=== PATIENT | female | born 1985 | race Caucasian/White ===

== ENCOUNTER 2023-12-23 09:10 | Outpatient (CLI) | payer OTHER, SELFPAY ==
--- NOTE | ~2023-12-23 | US_ITS ---
EXAMINATION: US thyroid DATE: 12/23/2023 09:25 INDICATION: Hyperthyroidism TECHNIQUE: Multiple ultrasound images of the thyroid were obtained. COMPARISON: None. FINDINGS: The right thyroid lobe measures 3.9 x 1.3 x 1.8 cm. The left thyroid lobe measures 3.2 x 0.7 x 1.1 c m. Thyroid isthmus measures 3 to 4 mm in maximal thickness. No discrete nodules identified. There is normal echotexture, echogenicity throughout the thyroid gland. There is increased vascular flow throu ghout both the left and right thyroid lobes on color Doppler. IMPRESSION: 1. Increased vascular flow throughout the otherwise normal-appearing thyroid which can be seen with t hyroiditis. Reviewed, dictated and finalized at location A. IMPRESSION: 1. Increased vascular flow throughout the otherwise normal-appearing thyroid wh ich can be seen with thyroiditis.
== END 2023-12-23 09:11 ==
LOC: GOSHIMG 09:12
DX: E03.9 Hypothyroidism, unspecified (principal)
CPT/HCPCS: 76536

== ENCOUNTER 2024-03-02 08:55 | Outpatient (CLI) | payer OTHER, SELFPAY ==
--- NOTE | ~2024-03-02 | MR_ITS ---
MRI of the right knee Clinical history: Pain Technique: Coronal proton density and proton density-weighted images, sagittal proton-density and T2 fat-sat images, and axial proton-density fat-saturated images were acquired. Findings: Anterior and posterior cruciate ligaments are intact. Medial collateral ligament and the la teral collateral ligament complex are intact. Popliteus tendon is intact. Medial and lateral menisci are intact, without evidence of tear. There is mild to moderate chondromalacia the patellar apex and along the femoral trochlea. Extensor mechanism is intact. Minimal joint effusion and minimal Marie's cyst present. Impression: Chondromalacia of the patellofemoral compartment, as detailed above. Minimal joint effusion and minimal Marie's cyst. Reviewed, dictated and finalized at location M. UTER NUMERICAL CONTROL GRINDER Impression: Chondromalacia of the patellofemoral compartment, as detailed above. Minimal joint effusion and minimal Marie's cyst.
== END 2024-03-02 08:56 | disposition home or self-care (01) ==
LOC: GOSHIMG 08:57
DX: M22.41 Chondromalacia patellae, right knee (principal)
CPT/HCPCS: 73721

== ENCOUNTER 2024-03-13 08:59 | Emergency (ER) | payer OTHER, SELFPAY ==
--- NOTE | 2024-03-13 09:27 | ED_ITS ---
HPI - URI/Sore Throat General Chief Complaint: Upper Respiratory Infection Stated Complaint: sorethroat Time Seen by Provider: 03/13/24 09:27 Source: patient, RN notes reviewed and old records reviewed Mode of arrival: ambulatory Limitations: no limitations History of Present Illness HPI Narrative: 38-year-old female to Express Care with complaint of sore throat for 2 days. Patient denies cough, ear pain, fever, difficulty swallowing. Patient able to tolerate fluids by mouth. Patient resting comfortably in exam room in no acute distress. Related Data Home Medications Medication Instructions Recorded Confirmed cyanocobalamin (vitamin B-12) mcg 03/13/24 1,000 mcg/mL injection solution liothyronine 5 mcg tablet mcg 03/13/24 Allergies Allergy/AdvReac Type Severity Reaction Status Date / Time Sulfa (Sulfonamide Allergy Mild Unknown Verified 03/13/24 09:43 Antibiotics) Review of Systems Review of Systems: All systems reviewed & are unremarkable except as noted in HPI and below Constitutional: Constitutional: Reports no additional constitutional complaints Eyes: Eyes: Reports no additional eye complaints ENT: Reports as per HPI and Reports sore throat Cardiovascular: Cardiovascular: Reports no additional cardiovascular complaints, Denies chest pain and Denies dyspnea Respiratory: Respiratory: Reports no additional respiratory complaints, Denies cough and Denies dyspnea Musculoskeletal: Musculoskeletal: Reports no additional musculoskeletal complaints Neurologic: Reports system reviewed and no additional complaints, except as documented Psychiatric: Psychiatric: Reports no additional psychiatric complaints PMFSH Comments At the time of my signature, I reviewed and agree with the nursing past medical, surgical, social, and family history. There is no relevant family history pertinent to the patient complaint. Exam Const: General: cooperative, healthy appearing, comfortable, no acute distress, alert and well nourished Nutritional Appearance: well nourished Orientation/consciousness: patient oriented x3 Limitations: no limitations HENMT: Head: normal to inspection Ears: external ears normal Face/Nose/Sinus: Normal external nose present, Normal nares present, normal facial exam, No erythema and No edema Face and sinus: normal facial exam, no erythema and no edema Mouth: Yes Normal oral and palatal mucosa present Eyes: General: appearance normal, both eyes and all related structures Neck: Neck: normal visual inspection, full ROM and no meningeal signs Lymphatic: no lymphadenopathy noted and no lymphedema noted Chest: Chest palpation & inspection: normal inspection of the chest Resp: Effort & Inspection: normal respiratory effort and able to speak in complete sentences Auscultation: clear to auscultation bilaterally Cardio: Jugular venous distension: no JVD Rate: regular rate Rhythm: regular rhythm Back/Spine/Pelvis: Cervical Spine: cervical ROM normal Skin: General skin exam: normal color, no rashes or lesions noted and turgor normal Neuro: General: patient oriented x3, gait normal, moves all extremities and no meningeal signs Speech: normal speech Gait exam (Neuro): Normal gait present Extrem: General: normal to inspection, full ROM and capillary refill normal Psych: Appearance: grossly normal and well kempt Course Course Emergency Course: Some parts of this dictation were generated by voice recognition software and may contain typographical and/or grammatical inaccuracies. Level of Care: Express Care Visit Vital Signs Vital signs: Vital Signs Temperature 37.1 C 03/13/24 09:36 Pulse Rate 67 03/13/24 09:36 Respiratory Rate 16 03/13/24 09:36 Blood Pressure 112/74 03/13/24 09:36 Pulse Oximetry 98 03/13/24 09:36 Temperature 37.1 C 03/13/24 09:36 Pulse Rate 67 03/13/24 09:36 Respiratory Rate 16 03/13/24 09:36 Blood Pressure 112/74 03/13/24 09:36 Pulse Oximetry 98 03/13/24 09:36 reviewed MDM - URI/Sore Throat MDM Narrative Medical decision making narrative: 38-year-old female to Express Care with complaint of sore throat for 2 days. Patient denies cough, ear pain, fever, difficulty swallowing. Patient able to tolerate fluids by mouth. Patient resting comfortably in exam room in no acute distress. On exam, posterior oropharynx erythematous. Anterior cervical lymphadenopathy present. Patient tested positive for strep in clinic. Patient is sitting comfortably in exam room nontoxic in appearance. Patient appropriate for outpatient treatment and follow-up. Discharge instructions reviewed with patient, as well as provided in writing per nursing staff. The instructions also include specific and strict return/GO TO THE ER as well as f/u information. All questions have been answered, and the patient deny any further questions with discharge and discharge plan. Some parts of this dictation were generated by voice recognition software and may contain typographical and/or grammatical inaccuracies. Differential Diagnosis Differential diagnosis: Likely upper respiratory infection, croup, otitis media, sinusitis, viral infection, bronchitis, influenza and pharyngitis Discharge Plan Discharge Clinical Impression: Strep throat Patient Disposition: Home, Self-Care Condition: Stable Instructions: Strep Throat (DC) Additional Instructions: -Alternate Tylenol and Motrin per package directions for fever or pain. -Eat and drink things that are easy to swallow, like tea or soup, or popsicles. -Oral rinses such as: Salt water gargles and/or may use topical anesthetic (eg. Chloraseptic spray) or lozenges to relieve dryness or throat pain). -Frequent hand washing or hand facing baster jumpbasting is one of the best ways to prevent spread of infection. -Using a vaporizer or humidifier at night will also help thin secretions and help with coughing up phlegm. -Follow up with primary care provider in 2-3 days if condition is not improving; or seek ER visit if you have trouble breathing, cannot drink enough fluids, have muffled voice, difficulty opening your mouth, or severe swelling. Prescriptions: New amoxicillin 875 mg tablet 875 mg PO Q12H Qty: 20 0RF No Action liothyronine 5 mcg tablet cyanocobalamin (vitamin B-12) 1,000 mcg/mL solution Follow-up/Referrals: Mariusz,Ricardo Rodriguez [Other]
[2024-03-13 09:36] VITALS: BP 112/74; PULSE 67; RESP 16; TEMP 37.1; O2SAT 98
[2024-03-15 10:03] LABS: EDSTREPNEGPOS1 Positive (Negative)
== END 2024-03-13 09:56 | disposition home or self-care (01) ==
PROVIDERS: Emergency Provider Nurse Practitioner Family
DX: J02.0 Streptococcal pharyngitis (principal); E03.9 Hypothyroidism, unspecified; E53.8 Deficiency of other specified B group vitamins
CPT/HCPCS: 87880; 99213; G0463

== ENCOUNTER 2024-06-01 08:17 | Emergency (ER) | payer OTHER, SELFPAY ==
--- NOTE | 2024-06-01 08:23 | ED_ITS ---
HPI - URI/Sore Throat General Chief Complaint: Upper Respiratory Infection Stated Complaint: Headaches Time Seen by Provider: 06/01/24 08:24 Source: patient Mode of arrival: ambulatory Limitations: no limitations History of Present Illness HPI Narrative: Jillian is a 38-year-old female patient presenting to the clinic today with complaints of headache x1 day. She reports her children have been sick with flu-like illness. Does have some nasal congestion but denies any other symptoms. MD elicited complaint: nasal congestion and other (Headache) Related Data Home Medications ?Medication ?Instructions ?Recorded ?Confirmed ?Last Taken ?Type cyanocobalamin (vitamin B-12) 1,000 mcg subcut WEEKLY 03/13/24 03/13/24 Unknown History 1,000 mcg/mL injection solution liothyronine 5 mcg tablet 5 mcg PO DAILY 03/13/24 03/13/24 Unknown History Allergies Allergy/AdvReac Type Severity Reaction Status Date / Time Sulfa (Sulfonamide Allergy Mild Unknown Verified 06/01/24 08:25 Antibiotics) Review of Systems Review of Systems: Pertinent positives per HPI. Patient denies any fever, chills, rash, visual changes, dizziness, cough, shortness of breath, chest pain, palpitations, nausea, vomiting, diarrhea, constipation, abdominal pain, or any urinary issues. PMFSH Comments At the time of my signature, I reviewed and agree with the nursing past medical, surgical, social, and family history. There is no relevant family history pertinent to the patient complaint. Exam Narrative: General: Well-developed, well nourished, in no apparent distress Head: Normocephalic, atraumatic Eyes: Pupils equally round and reactive to light bilaterally, EOM intact, sclera and conjunctive clear, no discharge, lids normal Ears: TMs intact and clear, ear canals clear, no drainage, grossly hearing normal. Nose: Nares patent, clear nasal discharge, no inflammation, no sinus tenderness. Mouth: Oral pharynx without lesions or masses, good dentition, MMM. Neck: Supple, trachea midline, no enlargement of anterior or posterior cervical nodes, no thyroid masses or goiter palpable. Cardio: Regular rate and rhythm, s1 and s2 normal, no murmur appreciated. Resp: Clear to auscultation bilaterally, no rhonchi, rales, wheezing or rubs Course Course Emergency Course: Portions of this record may have been created with voice recognition software. Level of Care: Express Care Visit Vital Signs Vital signs: Vital signs reviewed MDM - URI/Sore Throat MDM Narrative Medical decision making narrative: At the time of visit patient is resting comfortably on the exam table. Patient appears to be nontoxic. Labs: Influenza testing was negative in the clinic today. Plan: I suspect patient has acute headache likely due to viral syndrome as daughter tested positive for influenza A in the clinic today. Supportive measures were discussed with the patient and they voiced understanding discharge instructions and agrees to treatment plan. Return precautions reviewed Differential Diagnosis Differential diagnosis: Likely upper respiratory infection, otitis media, sinusitis, viral infection, bronchitis, influenza, pharyngitis and other Discharge Plan Discharge Clinical Impression: Exposure to influenza Headache Qualifiers: Headache type: unspecified Headache chronicity pattern: acute headache Intra ctability: not intractable Qualified Code(s): R51.9 - Headache, unspecified Patient Disposition: Home, Self-Care Condition: Stable Instructions: Antibiotic Form, Acute Headache (ED) Additional Instructions: Influenza testing was negative in the clinic today Increase fluids and stay well hydrated Tylenol/motrin for pain/fever Flonase and OTC antihistamines as directed Vicks vapor rub to open sinuses Sinus rinses for congestion Cepacol spray, cough drops, throat lozenges, warm tea with honey/lemon, gargle salt water to soothe throat BRAT diet for diarrhea Clear liquids x 24 hours then advance as tolerated for nausea/vomiting Go to the ED if you develop a worsening in your condition- high fever not controlled by Tylenol or Motrin, dehydration, weakness, lethargy, shortness of breath, or chest pain. Follow up with your PCP in 3-5 days if symptoms persist. Patient Language: Montenegrin Prescriptions: No Action liothyronine 5 mcg tablet 5 mcg PO DAILY cyanocobalamin (vitamin B-12) 1,000 mcg/mL solution 1,000 mcg subcut WEEKLY Follow-up/Referrals: PHYSICIAN,SHOE SHINER [Primary Care Provider] - Stand Alone Forms: Work/School Release IP Time of Disposition: 08:49 Quality NIHSS Nursing Documentation ED NIHSS nursing documentation: reviewed/agree
[2024-06-01 08:44] VITALS: BP 126/76; PULSE 68; RESP 16; TEMP 37.1; O2SAT 98
[2024-06-01 08:57] LABS: EDINFLUASCREEN Negative (Negative); EDINFLUBSCREEN Negative (Negative)
== END 2024-06-01 08:55 | disposition home or self-care (01) ==
PROVIDERS: Emergency Provider Nurse Practitioner Family
DX: R51.9 Headache, unspecified (principal); R09.81 Nasal congestion
CPT/HCPCS: 87804; 99212; G0463

== ENCOUNTER 2024-07-26 10:01 | Emergency (ER) | payer OTHER, SELFPAY ==
[2024-07-26 10:02] VITALS: BP 153/78; PULSE 70; RESP 16; TEMP 36.6; O2SAT 100
--- OUTSIDE RECORDS SUMMARY | 2024-07-26 11:08 | XMS_ITS ---
Author Organization [email or web address] [facility] Address [address] [place] [address] Care Team Providers Care Implementation Manager Name Role Phone Lisa Scott Primary Care Provider [phone] Alisha Nichols [phone] REASON FOR VISIT F/u Thyroid/DST Encounters Encounter Location Date Provider Diagnosis [facility] [address] [place] [address] 03/02/2024 Alisha Nichols Plan Of Treatment No Information Progress Notes * Jillian RODRIGUEZDOB: [birth year] (39 yo F)Acc No.[id number]:03/02/2024 Progress Notes Patient: Jillian LYNN Provider: ROSA Hilario :1985 A ge:38 Y S ex:Female Date:03/02/2024 Address:[address] [place] [address] Pcp:Lisa Scott Subjective: * Chief Complaints: * 1 . F/u Thyroid/DST. * Medical History: Objective: * Vitals: Assessment: Plan: * Treatment: * Billing Information: * Visit Code: * Procedure Codes: * Electronic signature of ROSA Ghotra on 07/26/2024 at 11:08 AM CDT Sign off status: Pending * Provider: ROSA Hilario Date: 05/02/2023 Generated for Printi ng/Faxing/eTransmitting on: 0 07/26/2024 11:08 AM CDT
--- OUTSIDE RECORDS SUMMARY | 2024-07-26 11:08 | XMS_ITS | Clinical Summary ---
Author Organization [facility] Address [address] [place] [address] Phone Care Team Providers Care Plastic Fixture Builder Name Role Phone Ricardo Vee MD Primary Care Provider Allergies Active Allergy Reactions Criticality Noted Date Comments Sulfa Antibiotics Unknown 11/25/2017 Medications No known medications Active Problems No known active problems Social History Tobacco Use Types Packs/Day Years Used Date Smoking Tobacco: Some Days Smokeless Tobacco: Never Alcohol Use Standard Drinks/Week Comments No 0 (1 standard drink = 0.6 oz pur e alcohol) Comments No Sex and Gender Information Value Date Recorded Sex Assigned at Not on file Legal Sex Female 12:21 PM CDT Gender Identity Not on file Sexual Orientation Not on file Last Filed Vital Signs Vital Sign Reading Time Taken Comments Blood Pressure 98/60 05/11/2020 9:59 AM MINE MANAGER Pulse 69 05/11/2020 9:59 AM MINE MANAGER Temperature 36.9 C (98.5 F) 05/11/2020 9:59 AM MINE MANAGER Respiratory Rate 16 05/11/2020 9:59 AM MINE MANAGER Oxygen Saturation 98% 05/11/2020 9:59 AM MINE MANAGER Inhaled Oxygen Concentration - - Weight 82.6 kg (182 lb) 05/11/2020 9:59 AM MINE MANAGER Height 180.3 cm (5' 11 ) 11/25/2017 12:22 PM CDT Body Mass Index 25.38 11/25/2017 12:22 PM CDT Plan of Treatment Health Maintenance Due Date Last Done Comments Hepatitis C Virus (HCV) Screening 1985 TdaP Immunization 1985 Hepatitis B Immunization (1 of 3 - 19+ 3-dose series) 06/27/2003 Influenza Immunization (#1) 2023 10/0 10/2019, 03/06/2012 SARS-COV-2 Immunization ( season) 2023 05/04/2021, 07/18/2020, 06/29/2020 Respiratory Syncytial Virus (RSV) Immunization (Adult) (1 - 1-dose 75+ series) 06/27/2059 Meningococcal Immunization (ACWY) Aged Out No longer eligible b ased on patient's age to complete this topic Pneumococcal Immunization Combined Aged Out No longer eligible b ased on patient's age to complete this topic Rotavirus Immunization Aged Out No lo nger eligible based on patient's age to complete this topic Insurance Care Teams Plastic Fixture Builder Relationship Specialty [place] [id number] [place] [address] PCP - General Internal Medicine 11/25/17
--- OUTSIDE RECORDS SUMMARY | 2024-07-26 11:08 | XMS_ITS | Clinical Summary ---
Author Organization [facility] Address [address] [place] [address] Care Team Providers Care Surfacing Machine Operator Name Role Phone Denilson Brown MD Unavailable [phone] Ricardo Vee MD Primary Care Provider Source Comments [facility],non-owned Affiliates and Associated Physician Practices is amultiple site organization consisting of ambulatory clinics and hospital sitesin [place], [place], [place] and [place]. This disclosure is being madepursuant to the Care Everywhere program and may not contain all information available regarding this patient. Last updated 18.[facility] Allergies Active Allergy Reactions Criticality Noted Date Comments Sulfa Drugs Urticaria,Rash 10/21/2008 Medications * Be aware that medications may not be up to date on this document. Alwaysverify current medications with the patient. Medication Sig Dispensed Refills Start Date End Date Status Cetirizine HCl (ZYRTEC PO) Active Multiple Vitamin (MULTI VITAMIN DAILY PO) Active levothyroxine (Synthroid) 88 MCG tabletIndicatio ns:Hypothyroidi sm, acquired,Goiter TAKE 1 (ONE) TABLET BY MOUTH ONCE DAILY REPLACING THE 75 MCG DOSING 90 tablet 1 05/19/2023 Active cyanocobalamin (Vitamin B-12) injection INJECT SUBCUTANEOUSLY ONCE WEEKLY 03/15/2024 Active liothyronine (Cytomel) 5 MCG tablet 1 tab(s) orally once a day at noon for 30 days 02/13/2024 Active diclofenac sodium EC (Voltaren) 75 MG tablet 1 tab(s) orally 2 times a day Active acetaminophen CR (Tylenol Arthritis Pain) 650 MG tablet Take by mouth every 8 hours 06/09/2023 Active Magnesium Glycinate 100 MG CAPS Magnesium Glycinate Activ e cephalexin (Keflex) 500 MG capsule Take 1 (one) capsule by mouth 3 times daily 21 capsule 11/29/2022 Discontinue d(List Clean-Up) Active Problems Problem Noted Date Diagnosed Date Dysmenorrhea 06/29/2018 Menorrhagia with regular cycle 06/29/2018 Encounter for supervision of other normal pregna ncy 11/28/2014 Overview (03/05/2015): Screening for cervical cancer 10/21/2008 Overview (10/11/2010): 09/11/2009 wnl Resolved Problems Problem Noted Date Diagnosed Date Resolved Date Supervision of normal first 10/09/2011 11/28/2014 Encounters Date Type Department Care Team Description 07/08/2024 1:00 PM CDT Office Visit [facility] [place] [address] [facility] [address] [place] [address] Denilson Brown MD Well woman exam with routine gynecological exam (Primary Dx); Special screening examination for human papillomavirus (HPV); Antwan 07/08/2024 11:54 AM CDT - 07/08/2024 11:59 PM CDT Hospital Encounter [facility] [address] [facility] [address] [place] [address] Discharge Disposition: Home or Self Care 07/08/2024 Travel 05/31/2024 8:00 AM CARD FOLDER Office Visit [facility] [address] [place] [id number] Ishaan Barillas MD Patellofemoral chondrosis of right knee (Primary Dx) from Last 3 Months Immunizations Name Administration Dates Next Due FLU VACCINE TRI IIV3 SPLIT PF IM (FLUVIRIN) 12/28,04/05/2011 MMR 11/03/2011 TDAP (7yrs+) 10/21/2014,01/06/2013,11/03/2011 Family History Medical History Relation Name Comments Arthritis - Rheumatoid Father Hyperlipidemia Father Hypertension Father Thyroid Disease Maternal Aunt 1 Thyroid Disease Maternal Aunt 2 Thyroid Disease Maternal Aunt 3 Diabetes Maternal Grandfather Heart Disease Maternal Grandfather Hypertension Maternal Grandfather Stroke Maternal Grandfather Diabetes Maternal Grandmother Heart Disease Maternal Grandmother Hypertension Maternal Grandmother Diabetes - Type 2 Mother Obesity Mother Thyroid Disease Mother Cancer Paternal Aunt Family Hx Skin, Colon, a nd Breast Cancer Paternal Grandfather Pancrea tic Diabetes Paternal Grandfather Heart Disease Paternal Grandfather Hypertension Paternal Grandfather Diabetes Paternal Grandmother Heart Disease Paternal Grandmother Hypertension Paternal Grandmother Diabetes - Type 2 Paternal Uncle Relation Name Status Comments Father Maternal Aunt 1 Alive Maternal Aunt 2 Alive Maternal Aunt 3 Alive Maternal Grandfather Maternal Grandmother Mother Paternal Aunt Family Hx Other Paternal Grandfather Paternal Grandmother Paternal Uncle Alive Social History Tobacco Use Types Packs/Day Years Used Date Smoking Tobacco: Former Cigarettes 0.3 2 0 12/13/2008 - 12/13/2010 Smokeless Tobacco: Never Tobacco Cessation:Counseling Given: Not Answered Comments:8-10 daily Alcohol Use Standard Drinks/Week Comments Yes 0 (1 standard drink = 0.6 oz pur e alcohol) weekend / social PHQ-2 Answer Date Recorded Patient Health Questionnaire-2 Score 0 07/08/2024 Sex and Gender Information Value Date Recorded Sex Assigned at Female 05/12/2021 6:13 PM CARD FOLDER Gender Identity Female 05/12/2021 6:13 PM CARD FOLDER Sexual Orientation Straight 05/12/2021 6: 13 PM CARD FOLDER Last Filed Vital Signs Vital Sign Reading Time Taken Comments Blood Pressure 124/76 07/08/2024 1:00 PM CDT Pulse 60 06/29/2018 8:05 AM CARD FOLDER Temperature 36.2 C (97.2 F) 06/29/2018 7:42 AM CARD FOLDER Respiratory Rate 16 06/29/2018 8:05 AM CARD FOLDER Oxygen Saturation 98% 06/29/2018 8:05 AM CARD FOLDER Inhaled Oxygen Concentration - - Weight 94.3 kg (208 lb) 07/08/2024 1:00 PM CDT Height 177.8 cm (5' 10 ) 07/08/2024 1:00 PM CDT Body Mass Index 29.84 07/08/2024 1:00 PM CDT Plan of Treatment Health Maintenance Due Date Last Done Comments HEPATITIS C SCREENING 06/22/2002 HEPATITIS B VACCINE (1 of 3 - 19+ 3-dose series) 06/27/2003 COVID-19 VACCINE (4 - season) 2023 05/04/2021, 07/18/2020, 06/29/2020 INFLUENZA VACCINE (#1) 2023 , 02/06/2020, 02/02/2020, Additional history exists DTAP/TDAP/TD VACCINES (4 - Td or Tdap) 10/21/2024 10/21/2014, 01/06/2013, 11/03/2011 SCREENING FOR DIABETES 11/14/2025 11/14/2022 MAMMOGRAM 07/08/2026 07/08/2024 LIPID TESTING 06/09/2028 06/09/2023, 10/27, 02/02/2020 PAP with HPV 07/08/2029 07/08/2024, 02/26, 08/07/2017 ZOSTER VACCINE (1 of 2) 2034 HIV SCREENING Completed 05/26/2014, 11/2012, 03/08/2011 DEPRESSION SCREENING Completed 05/31/2024, 06/06/19 24 HIB VACCINE Aged Out No longer eligi ble based on patient's age to complete this topic HPV VACCINE Aged Out No longer eligi ble based on patient's age to complete this topic MENINGOCOCCAL (Group B) VACCINE SHARED DECISION-MAKING Aged Out No longer eligible based on patient's age to complete this topic MENINGOCOCCAL GROUPS A/C/Y/W VACCINE Aged Out No longer eligible based on patient's age to complete this topic PNEUMOCOCCAL VACCINE Aged Out No long er eligible based on patient's age to complete this topic Procedures Procedure Name Priority Date/Time Associated Diagnosis Comments PAP IG LB +HPV APTIMA REFLEX 16,18/45 Routine 07/08/2024 3:04 PM CDT Well woman exam with routine gynecological exam Special screening examination for human papillomavirus (HPV) MAMMO BILAT SCREENING W ELMO Routine 07/08/2024 12:11 PM CDT Encounter for screening mammogram for malignant neoplasm of breast BASIC METABOLIC PANEL (CALCIUM TOTAL) Routine 11/14/2022 7:51 AM CDT Hypothyroidism, acquired Weight gain, abnormal LIPID PROFILE Routine 11/14/2022 7:51 AM CDT Hypothyroidism, acquired Familial hypercholesterolemia HIV-1 HIV-2 ANTIBODY W/ REFLX CONFIRM 05/26/2014 9:47 AM CARD FOLDER from Last 3 Months or Most Recently Relevant to Health Maintenance Results * PAP IG LB +HPV APTIMA REFLEX 16,18/45 (07/08/2024 3:04 PM CDT) Diagnosis Comment [facility] INSURANCE BILL Comment:NEGATIVE FOR INTRAEP ITHELIAL LESION OR MALIGNANCY. Specimen Adequacy Comment [facility] INSURANCE BILL Comment: Satisfactory for evaluation. Endocervical and/or squamous metaplastic cells (endocervical component) are present. Clinician Provided ICD10 Comment [facility] INSURANCE BILL Comment: Z01.419 Z11.51 Performed by Comment [facility] INSURANCE BILL Comment:Kinza portillo, Adjunct Communications Faculty Member (ASCP) Comment . [facility] INSURANCE BILL Note Comment [facility] INSURANCE BILL Comment: The Pap smear is a screening test designed to aid in the detection of premalignant and malignant conditions of the uterine cervix. It is not a diagnostic procedure and should not be used as the sole means of detecting cervical cancer. Both false-positive and false-negative reports do occur. [facility] CPT Code Automation Comment [facility] INSURANCE BILL Comment: This liquid based ThinPrep(R) pap test was screened with the use of an image guided system. Human papillomavirus Aptima Negative Negative [facility] INSURANCE BILL Comment: This nucleic acid amplification test detects fourteen high-risk HPV types (16,18,31,33,35,39,45,51,52,56,58,59,66,68) without differentiation. HPV Genotype Reflexed Comment [facility] INSURANCE BILL Comment:Criteria not met, HP V Genotype not performed. PART OF UTERINE CERVIX / Unknown 07/08/2024 3:04 PM CDT 07/08/2024 Narrative [facility] INSURANCE BILL - 07/12/2024 3:09 PM CDT Performed at: [address] [place], [place] [address] [id number] Logistics Supervisor: Myah Clement MD, Phone: [phone] Performed at: [address] [place], [place] [id number] Logistics Supervisor: Myah Clement MD, Phone: [phone] Specimen Comment: Source.............Cervix;Endocervix Specimen Comment: No. of containers..01 ThinPrep Vial Denilson Brown MD LAB - PATHOLOGY/CYT OLOGY ORDERABLES [facility] INSURANCE BILL [address] [place] [address] * Mammo Bilat Screening W [place] (07/08/2024 12:11 PM CDT) Anatomical Region Laterality Modality Breast Bilateral Mammography 07/13/2024 1:22 PM CDT Impressions 07/13/2024 1:25 PM CDT IMPRESSION: Annual screening mammography is recommended. OVERALL FINAL ASSESSMENT: BI-RADS Category 1: Negative. > Interpreting Provider: Renato Mary MD on 07/13/2024 1:25 PM Narrative 07/13/2024 1:25 PM CDT EXAMINATION: BILATERAL DIGITAL SCREENING MAMMOGRAM AND BILATERAL BREAST TOMOSYNTHESIS HISTORY: Screening. COMPARISON: Baseline TECHNIQUE: BILATERAL digital breast tomosynthesis (DBT) and synthetic 2D digital mammogram images were obtained (bilateral craniocaudal and mediolateral oblique projections) including computer aided detection (CAD.) BREAST PARENCHYMAL COMPOSITION:Category C: The breasts are heterogeneously dense which may obscure small masses. MAMMOGRAM FINDINGS: There is no suspicious finding in either breast. Denilson Brown MD MAMMO ORDERABLES * BASIC METABOLIC PANEL (CALCIUM TOTAL) (11/14/2022 7:51 AM CDT) Glucose 84 65 - 99 mg/dL [facility] Comment: Fasting reference interval BUN 13 7 - 25 mg/dL [facility] Creatinine 0.85 0.50 - 0.97 mg/dL [facility] eGFR by Cystatin C 90 > OR = 60 mL/min/1. 73m2 [facility] Comment: The eGFR is based on the CKD-EPI 2020 equation. To calculate the new eGFR from a previous Creatinine or Cystatin C result, go to https://www.kidney.org/professionals/ kdoqi/gfr%5Fcalculator BUN/Creatinine Ratio NOT APPLICABLE 6 - 22 (calc) [facility] Sodium 137 135 - 146 mmol/L [facility] Potassium 4.8 3.5 - 5.3 mmol/L [facility] Chloride 102 98 - 110 mmol/L [facility] CO2 27 20 - 32 mmol/L [facility] Calcium 9.3 8.6 - 10.2 mg/dL [facility] Comment: Test Performed at: [place] [address] DEVANG MERINO MD Blood BLOOD SPECIMEN / Unknown 11/14/2022 7:51 AM CDT 11/14/2022 7:55 AM CDT Samantha Gorman MD LAB - CHEMISTRY ORDERABLES [facility] [address] [place] [address] * (ABNORMAL) LIPID PROFILE (11/14/2022 7:51 AM CDT) Cholesterol 224(H) <200 mg/dL [facility] HDL Cholesterol 78 > OR = 50 mg/dL [facility] Triglycerides 69 <150 mg/dL [facility] LDL Calculated 130(H) mg/dL (calc) [facility] Comment: Reference range: <100 Desirable range <100 mg/dL for primary prevention; <70 mg/dL for patients with CHD or diabetic patients with > or = 2 CHD risk factors. LDL-C is now calculated using the Jose-Sandoval calculation, which is a validated novel method providing better accuracy than the Friedewald equation in the estimation of LDL-C. Jose LEWIS et al. MARIA GUADALUPE. 2013;310(19): 3526-7035 (http://education.[employer]/faq/FLA541) CHOL/HDLC RATIO 2.9 <5.0 (calc) [facility] Non HDL Cholesterol 146(H) <130 mg/dL (calc) [facility] Comment: For patients with diabetes plus 1 major ASCVD risk factor, treating to a non-HDL-C goal of <100 mg/dL (LDL-C of <70 mg/dL) is considered a therapeutic option. Test Performed at: [facility] [place] [address] DEVANG MERINO MD Blood BLOOD SPECIMEN / Unknown 11/14/2022 7:51 AM CDT 11/14/2022 7:55 AM CDT Samantha Gorman MD LAB - CHEMISTRY ORDERABLES Performing Organization Address [facility] Co de Phone Number [facility] [address] [place] [address] * HIV-1 HIV-2 ANTIBODY W/ REFLX CONFIRM (05/26/2014 9:47 AM CARD FOLDER) HIV-1/HIV-2 NON-REACT DAVINA NON-REACT DAVINA [facility] Comment: A Nonreactive HIV 1/2 antibody result does not exclude HIV infection since the time frame for seroconversion is variable. If acute HIV infection is suspected, HIV-1 RNA TMA Qualitative (01490) testing is recommended. PLEASE NOTE: This information has been disclosed to you from records whose confidentiality may be protected by state law. If your state requires such protection, then the state law prohibits you from making any further disclosure of the information without the specific written consent of the person to whom it pertains, or as otherwise permitted by law. A general authorization for the release of medical or other information is NOT sufficient for this purpose. Test Performed at: [facility] [address] [place] [address] VALENCIA CISNEROS DO,MPH 05/26/2014 9:47 AM CARD FOLDER 05/26/2014 9:48 AM CARD FOLDER Denilson Brown MD LAB - SEROLOGY OLU FINN Performing Organization Address [facility] Co de Phone Number [facility] [address] [place] [address] from Last 3 Months or Most Recently Relevant to Health Maintenance Advance Directives * Full Code (Latest Code Status on File) Date Activated Date Inactivated Comments 12/13/2014 6:17 AM 12/15/2014 2:55 PM * FULL RESUSCITATION Date Activated Date Inactivated Comments 03/09/2013 3:37 AM 03/09/2013 9:40 AM * FULL RESUSCITATION Date Activated Date Inactivated Comments 03/09/2013 3:09 AM 03/09/2013 3:37 AM * FULL RESUSCITATION Date Activated Date Inactivated Comments 02/27/2013 9:10 PM 02/27/2013 11:01 PM * FULL RESUSCITATION Date Activated Date Inactivated Comments 11/01/2011 7:39 AM 11/04/2011 1:17 AM Care Teams Surfacing Machine Operator Relationship Specialty Start [place] [address] [facility] [address] [place] [address] PCP - OBGYN 10/21/08 [place] [address] [phone] PCP - General Internal Medicine 05/11/14
--- OUTSIDE RECORDS SUMMARY | 2024-07-26 11:08 | XMS_ITS | Encounter Summary ---
Author Organization [facility] Address [address] [address] Care Team Providers Care Tugboat Dispatcher Name Role Phone Denilson Brown MD Unavailable [phone] Ricardo Vee MD Primary Care Provider Encounter Details Date Type Department Care Team (Late st Contact [facility]) Description 06/09/2023 Lab Requisition [facility] - DermPath Lab [address] [place] [place] [phone] [place] [address] [address] Social History Tobacco Use Types Packs/Day Years Used Date Smoking Tobacco: Former Cigarettes 0.3 2 0 12/13/2008 - 12/13/2010 Smokeless Tobacco: Never Comments:8-10 daily Alcohol Use Standard Drinks/Week Comments Yes 2 (1 standard drink = 0.6 oz pur e alcohol) per week PHQ-2 Answer Date Recorded Patient Health Questionnaire-2 Score 0 06/06/2023 Sex and Gender Information Value Date Recorded Sex Assigned at Female 05/12/2021 6:13 PM PAYABLE PROCESSOR Gender Identity Female 05/12/2021 6:13 PM PAYABLE PROCESSOR Sexual Orientation Straight 05/12/2021 6: 13 PM PAYABLE PROCESSOR documented as of this encounter Functional Status Functional Status Response Date of Assess ment Is person deaf or have serious hearing difficult y? No 12/13/2014 Is person blind or have serious difficulty seein g? No 12/13/2014 Does person have serious dif ficulty walking/climbing stairs? No 12/13/2014 Does person have difficulty dressing/bathing? No 12/13/2014 Does person have difficulty doing errands alone? No 12/13/2014 Cognitive Status Response Date of Assessm ent Does person have difficulty concentrating/remembering/making decisions? No 12/13/2014 documented as of this encounter Plan of Treatment Not on file documented as of this encounter Procedures Procedure Name Priority Date/Time Associated Diagnosis Comments DERMATOPATHOLOGY Routine 06/09/2023 3:33 AM PAYABLE PROCESSOR documented in this encounter Results * DERMATOPATHOLOGY (06/09/2023 3:33 AM PAYABLE PROCESSOR) Case Report Dermatopathology Report Case: [id number] Authorizing Provider: Adam Ritter MD Collected: 06/09/2023 03:33 AM Ordering Location: [facility] Derm[facility] Lab Received: 06/09/2023 02:43 PM Pathologist: Aliza Gorman MD Specimen: Skin, right dorsal forearm 4 4:50 PM [facility] DERMATOPATHOLOGY LABORATORY Final Diagnosis Specimen A. 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 The specimen consists of a punch biopsy measuring 4x4x4 mm. Jar 0. 4 4:50 PM [facility] DERMATOPATHOLOGY LABORATORY Microscopic Description Specimen A. SKIN, right dorsal forearm: There is psoriasiform hyperplasia of the epidermis with focal parakeratosis and spongiosis. There is a superficial, mainly lymphohistiocytic inflammatory infiltrate. Grocott's methenamine silver (GMS) stain fails to highlight fungal elements in the available sections. Additional deeper sections were obtained and reviewed. IL-36 demonstrates weak staining in the upper epidermis. COMMENT: The histological differential diagnosis includes an chronic eczematous dermatitis, favored given the IL-36 staining, psoriasiform keratosis or psoriasis. 4 4:50 PM PAYABLE PROCESSOR DERMATOPATHOLOGY LABORATORY Disclaimer An external and internal positive and negative controls are appropriate for the histochemical, immunohistochemical and immunofluorescence stain(s) in this case (if any), except where stated explicitly. The performance characteristics of the stain(s) cited in this report were developed and its performance characteristic determined by the Dermatopathology Laboratory at [facility], directed by Dr. Aniyah Lilly. These tests need not be, and therefore are not, approved by the [place] Food and Drug Administration. The tests are used for clinical purposes. Billing Codes Specimen Charges Stain Charges 29306 1 46524 96644 1 1 4 4:50 PM PAYABLE PROCESSOR DERMATOPATHOLOGY LABORATORY Embedded Images 4 4:50 PM PAYABLE PROCESSOR DERMATOPATHOLOGY LABORATORY Pathology/Cytolo gy TISSUE SPECIMEN FROM SKIN / Unknown 06/09/2023 3:33 AM PAYABLE PROCESSOR 06/09/2023 2:43 PM PAYABLE PROCESSOR Adam Ritter MD LAB - PATHOLOGY/CY TOLOGY ORDERABLES DERMATOPATHOLOGY LABORATORY [facility] - Department of Dermatology [address] [phone] documented in this encounter Visit Diagnoses Not on filedocumented in this encounter Care Teams Tugboat Dispatcher Relationship Specialty [place] [address] [facility] [address] [place] [address] PCP - OBGYN 10/21/08 [place] [address] [phone] PCP - General Internal Medicine 05/11/14 documented as of this encounter
--- OUTSIDE RECORDS SUMMARY | 2024-07-26 11:08 | XMS_ITS | Encounter Summary ---
Author Organization [facility] Address [address] [place] [address] Care Team Providers Care Electrical Supervisor Name Role Phone Denilson Brown MD Unavailable Mitchell Allen MD Primary Care Provider [phone] Ricardo Vee MD Primary Care Provider Encounter Details Date Type Department Care Team (Late st Contact Info) Description 08/07/2012 [facility] Outpatient Visit EXTERNAL [place] [address] [facility] [employer] [address] [place] [address] Social History Tobacco Use Types Packs/Day Years Used Date Smoking Tobacco: Passive Smo ke Exposure - Never Smoker Cigarettes Comments:Socially-Desires To Quit Alcohol Use Standard Drinks/Week Comments Yes 0 (1 standard drink = 0.6 oz pur e alcohol) Comments Yes Sex and Gender Information Value Date Recorded Sex Assigned at Female 05/12/2021 6:13 PM PLANT BUYER Gender Identity Female 05/12/2021 6:13 PM PLANT BUYER Sexual Orientation Straight 05/12/2021 6: 13 PM PLANT BUYER documented as of this encounter Plan of Treatment Not on file documented as of this encounter Visit Diagnoses Not on filedocumented in this encounter Care Teams Electrical Supervisor Relationship Specialty Start [place] [address] [facility] [address] [place] [address] PCP - OBGYN 10/21/08 Mitchell Allen MD [address] [place] [address] [address] [place] [address] PCP - General 10/29/11 05/10/14 [place] [address] [address] PCP - General Internal Medicine 05/11/14 documented as of this encounter
--- OUTSIDE RECORDS SUMMARY | 2024-07-26 11:08 | XMS_ITS ---
Author Organization [facility] Address [address] [place] [address] Care Team Providers Care Deposit Refund Clerk Name Role Phone Lisa Scott Primary Care Provider REASON FOR VISIT lab follow up text Encounters Encounter Location Date Provider Diagnosis [facility] - Lisa Scott [address] [place] [address] 03/09/2024 Lisa Scott Plan Of Treatment No Information Progress Notes * Jillian RODRIGUEZDOB: 5 (39 yo F)Acc No.[id number]:03/09/2024 Progress Notes Patient: Jillian LYNN Provider: Arleen Scott MD :1985 A ge:38 Y S ex:Female Date:03/09/2024 Address:[address] [place], [place] [id number] Subjective: * Chief Complaints: * 1 . Lab follow up text. * HPI: H ypothyroidism: 38 yo female calls in today to initiate telehealth visit to discuss progress and management of hypothyroidism. Verbal consent provided by patient to proceed with this visit. This visit was performed in office via provider and patient located in primary care office with real time audio with video. At last visit in Dec we increased synthroid to 88 mcg daily. We added B12 injections and sent for DST. * Medical History: Objective: * Vitals: * P ast Orders: L ab:LIPID PANEL (Order Date - 03/02/2024) (Collection Date & Time - 03/02/2024 08:09 AM) Value Reference Range TRIGLYCERIDES 72 <150 - mg/dL CHOLESTEROL, TOTAL 222 H <200 - mg/dL HDL CHOLESTEROL 67 > OR = 50 - mg/dL LDL-CHOLESTEROL 139 H - mg/dL (calc) CHOL/HDLC RATIO 3.3 <5.0 - (calc) NON-HDL CHOLESTEROL 155 H <130 - mg/dL (calc) L ab:CBC (INCLUDES DIFF/PLT) (Order Date - 03/02/2024) (Collection Date & Time - 03/02/2024 08:09 AM) Value Reference Range WHITE BLOOD CELL COUNT 4.9 3.8-10.8 - [place] nd/uL RED BLOOD CELL COUNT 4.96 3.80-5.10 - Million /uL HEMOGLOBIN 15.1 11.7-15.5 - g/dL HEMATOCRIT 47.2 H 35.0-45.0 - % MCV 95.2 80.0-100.0 - fL MCH 30.4 27.0-33.0 - pg MCHC 32.0 32.0-36.0 - g/dL RDW 12.2 11.0-15.0 - % PLATELET COUNT 191 140-400 - Thousand/u L NEUTROPHILS 64.6 - % ABSOLUTE NEUTROPHILS 3165 8635-2073 - cells/u L LYMPHOCYTES 26.5 - % ABSOLUTE LYMPHOCYTES 7179 524-1586 - cells/uL MONOCYTES 6.5 - % ABSOLUTE MONOCYTES 319 200-950 - cells/uL EOSINOPHILS 1.8 - % ABSOLUTE EOSINOPHILS 88 15-500 - cells/uL BASOPHILS 0.6 - % ABSOLUTE BASOPHILS 29 0-200 - cells/uL MPV 11.5 7.5-12.5 - fL L ab:IRON AND TOTAL IRON BINDING CAPACITY (Order Date - 03/02/2024) (Collection Date & Time - 03/02/2024 08:09 AM) Value Reference Range IRON, TOTAL 93 40-190 - mcg/dL IRON BINDING CAPACITY 352 250-450 - mcg/dL ( calc) % SATURATION 26 16-45 - % (calc) L ab:T3, FREE (Order Date - 03/02/2024) (Collection Date & Time - 03/02/2024 08:09 AM) Value Reference Range T3, FREE 3.5 2.3-4.2 - pg/mL L ab:FERRITIN (Order Date - 03/02/2024) (Collection Date & Time - 03/02/2024 08:09 AM) Value Reference Range FERRITIN 59 16-154 - ng/mL L ab:T4, FREE (Order Date - 03/02/2024) (Collection Date & Time - 03/02/2024 08:09 AM) Value Reference Range T4, FREE 1.4 0.8-1.8 - ng/dL L ab:TSH (Order Date - 03/02/2024) (Collection Date & Time - 03/02/2024 08:09 AM) Value Reference Range TSH 1.68 - mIU/L L ab:COMPREHENSIVE METABOLIC PANEL (Order Date - 03/02/2024) (Collection Date & Time - 03/02/2024 08:09 AM) Value Reference Range GLUCOSE 95 65-99 - mg/dL UREA NITROGEN (BUN) 11 7-25 - mg/dL CREATININE 0.79 0.50-0.97 - mg/dL BUN/CREATININE RATIO SEE NOTE: 10-17 - (calc) SODIUM 139 135-146 - mmol/L POTASSIUM 4.3 3.5-5.3 - mmol/L CHLORIDE 104 98-110 - mmol/L CARBON DIOXIDE 28 20-32 - mmol/L CALCIUM 9.1 8.6-10.2 - mg/dL PROTEIN, TOTAL 6.9 6.1-8.1 - g/dL ALBUMIN 4.4 3.6-5.1 - g/dL GLOBULIN 2.5 1.9-3.7 - g/dL (calc ) ALBUMIN/GLOBULIN RATIO 1.8 1.0-2.5 - (calc) BILIRUBIN, TOTAL 0.8 0.2-1.2 - mg/dL ALKALINE PHOSPHATASE 66 31-125 - U/L AST 21 10-30 - U/L ALT 16 6-29 - U/L EGFR 98 > OR = 60 - mL/min/1.73m2 L ab:VITAMIN B12/FOLATE, SERUM PANEL (Order Date - 03/02/2024) (Collection Date & Time - 03/02/2024 08:09 AM) Value Reference Range FOLATE, SERUM 21.4 - ng/mL VITAMIN B12 554 515-9086 - pg/mL L ab:DEXAMETHASONE (Order Date - 02/24/2024) (Collection Date & Time - 02/24/2024 08:41 AM) Value Reference Range DEXAMETHASONE 112 - ng/dL L ab:CORTISOL, TOTAL (Order Date 02/24/2024) (Collection Date & Time - 02/24/2024 08:41 AM) Value Reference Range CORTISOL, TOTAL 1.0 L - mcg/dL Assessment: Plan: * Treatment: * Billing Information: * Visit Code: * Procedure Codes: * Electronic signature of Alex Scott MD on 07/26/2024 at 11:08 AM CDT Sign off status: Pending * Provider: Arleen Scott MD Date: 1 05/09/2023 Generated for So velasquez/Fletcher/eTransmitting on: 0 07/26/2024 11:08 AM CDT History and Physical Notes * HPI (History of Present Illness) Category Sub-Category Detail Notes Category Not es Hypothyroidism 38 yo female calls in today to initiate telehealth visit to discuss progress and management of hypothyroidism. Verbal consent provided by patient to proceed with this visit. This visit was performed in office via provider and patient located in primary care office with real time audio with video. At last visit in Dec we increased synthroid to 88 mcg daily. We added B12 injections and sent for DST.
--- OUTSIDE RECORDS SUMMARY | 2024-07-26 11:08 | XMS_ITS | CONTINUITY OF CARE DOCUMENT ---
Author Name debchanellyandy Address Unknown Organization [facility] Address [address] [address] [place] [address] Phone [phone] Care Team Providers Care Boat And Plant Utility Supervisor Name Role Phone Andrez CAM, John Unavailable [phone] WILDER CAM, MARISA Unavailable [phone] WILDER CAM, MARISA Unavailable [phone] PROBLEMS Condition Status Date Provider Notes Venous hypertension - BLE inflammation active Anisa Beltrán RN Tobacco abuse active John Maguire MD ENCOUNTERS Date Type Provider Location Encounter Diag nosis - In-person encounter Office Visit [facility] - In-person encounter Office Visit John Maguire MD [facility] Tobacco abuse - In-person encounter Office Visit John Maguire MD [facility] Venous hypertension - BLE inflammation VITAL SIGNS Date Observation Value Provider Body Mass Index (Ratio) 26.92 kg/m2 Abilio Maguire MD blood pressure, diastolic 80 mm[Hg] Nikhil Pugh blood pressure, systolic 125 mm[Hg] Rho jose Pugh respiratory rate E&M 18 /min Zoila Pugh blood pressure, cuff size regular Rh farhat Pugh oxygen saturation, oximetry 99 % Zoila Pugh pulse rate 74 /min Zoila Pugh weight E&M 193 [lb_av] Zoila Pugh height E&M 71 [in_i] Zoila Pugh Body Mass Index (Ratio) 27.33 kg/m2 Ron Beltrán RN blood pressure, diastolic 60 mm[Hg] [facility], systolic 122 mm[Hg] Una forbes [facility] pulse rate 82 /min [facility] rate E&M 16 /min [facility] oxygen saturation, oximetry 99 % [facility] weight E&M 196 [lb_av] [facility] height E&M 71 [in_i] [facility] Body Mass Index (Ratio) 27.33 kg/m2 Ron Beltrán RN blood pressure, resting No Michi Brooks blood pressure, diastolic 80 mm[Hg] Juan Brooks blood pressure, systolic 116 mm[Hg] Roger Brooks oxygen saturation, oximetry 99 % Lyly Brooks respiratory rate E&M 16 /min Lyly Brooks pulse rate 67 /min Lyly Brooks blood pressure, cuff size regular Juan Boroks height E&M 71 [in_i] Lyly Brooks weight E&M 196 [lb_av] Lyly Brooks ALLERGIES Allergy Name Onset Date Reaction Criticality Status SULFA Low Criticality active HISTORY OF MEDICATION USE Medication Status Instructions Dates Provider Indications Com ments DAILY MULTIVITAMIN active take one tablet by mouth once daily Lyly Brooks SOCIAL HISTORY Date Observation Value Provider smoking status Current every day smoker Queta Pugh social history reviewed E&M revi ewed - no changes required Johnnicole Maguire MD smoking/tobacco cess ation, patient education and counseling yes Inez OCanelo number of years as a smoker 8 a [facility] smoking history, tot al pack/day 10 cig qd Inez Diamond cigarette use yes Inez Rupinder[facility]hetCanelo smoking status current every day smoker Arleen loja [facility] social history reviewed E&M kerline strange - no changes required Anisa Beltrán RN social history E&M Patient angelia hernadez smokes every day. Smoking History: P joe currently smokes every day. P atvictorino has been counseled to quit. 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 Has thrombosed veins which are tender in right lateral knee area and upper right calf. Mild edema and not bothersome. Uses compresssion stockings. I discussed the options with her which are either to stay with conservative rx or to have a phlebectomy. She wishes to wait and watch for now. Anisa Beltrán RN Cardiology:The Patie nt was reencouraged to stop smoking. John Maguire MD Cardiology:Has been increasing in pain lately, worse towards the end of the day. Also has varicosity left lateral calf, but this one doesn't bother her as much. She gets BLE edema, RLE>LLE. 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 Uses knee-high compression stockings for 2 months now, but finds leg cramps worsen with use. Leg swelling is better while stockings are on. V enous u/s showed b/l GSV reflux and right LSV reflux. V aricose vein located right posterior calf most painful. H as failed conservative measures and will recommend right LSV evlt to manage symptoms. W ill schedule scelorosis lateral knee varicosity at the same time. John Maguire MD Cardiology: evaluati on of varicose vein located right posterior calf. Has been increasing in pain lately, worse towards the end of the day. Also has varicosity left lateral calf, but this one doesn't bother her as much. She gets BLE edema. 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 Tried compression stockings aboout 6 months ago, but not recently. Finds them hot to wear. Didn't notice much improvement in her symptoms when wearing them. She denies history of DVT. check venous reflux study D iscussed conserverative measures - including ambulation, leg elevation, and thigh high 20-30mmHg compresion stockings Anisa Beltrán RN HISTORY OF PROCEDURES Procedure Date Procedure Name Provider Procedure Notes S tatus EKG John Maguire MD completed
--- OUTSIDE RECORDS SUMMARY | 2024-07-26 11:08 | XMS_ITS | Patient Health Record ---
Author Organization [facility] Address [address] [place] [address] Care Team Providers Care Imagery Intelligence Name Role Phone Mariusz CAM, Ricardo Primary Care Provider Zenon Murphy MD, Lionel Unavailable [phone] ALLERGIES Allergen (clinical drug ingredient) Drug/Non Drug Allergy documented on EMR Reaction Allergy Type Onset Date Status Sulfacetamide Sod-Sulfur Unknown Drug Allergy Active REASON FOR REFERRAL No Information MEDICATIONS Medication SIG (Take, Route, Fr equency, Duration) Notes Start Date End Date Status Aleve Active ZyrTEC Allergy Activ e Magnesium Active potassium Active IMMUNIZATIONS Vaccine Route Administration Date Status Comme nts Influenza Unknown 02/06/2020 Administered pneumoccocal Unknown 07/06/2020 Refused SOCIAL HISTORY Tobacco Use: Social History Observation Description Date Details (start date - stop date) Current Smoker NA - NA Sex Assigned At : Social History Observation Description Sex Assigned At Unknown Tobacco Use: Question Answer Notes Patient is a: current smoker How often do you smoke cigarettes? every day How many cigarettes a day do you smoke? 6-10 Are you interested in quitting? Thinking about q uitting Alcohol screening: Question Answer Notes Did you have a drink contain ing alcohol in the past year? Yes How often did you have a dri nk containing alcohol in the past year? Four or more times a week (4 points) How many drinks did you have on a typical day when you were drinking in the past year? 1 or 2 (0 points) How often did you have six o r more drinks on one occasion in the past year? 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) Active confirmed 814543187 Problem Pain in left foot (M79.672) Active confirmed 817616912785058 Problem Decreased sensation (R20.8) Active confirmed [id number] PLAN OF TREATMENT No Information Insurance Providers Payer Name Payer Address Payer Phone Subscriber Number Group Number Insured Name Patient Relationship to Insured Coverage Start Date Coverage End Date [employer] [address] [place] [address] [id number] Paulie Lovelace Spouse - patient is the spouse of the insured MEDICAL (GENERAL) HISTORY Medical History History ICD Code restless leg syndrome Surgical History Surgery Date(Month/Year)
--- OUTSIDE RECORDS SUMMARY | 2024-07-26 11:08 | XMS_ITS | Patient Health Record ---
Author Organization formerly [facility] Address [address] [address] Care Team Providers Care Licensed Loan Officer Name Role Phone Lisa Scott Primary Care Provider Alisha Nichols Unavailable [phone] Migration, Provider Unavailable Unavailable Allergies Allergen (clinical drug ingredient) Drug/Non Drug Allergy documented on EMR Reaction Allergy Type Onset Date Status Substance with sulfonamide structure and antibacterial mechanism of action (substance) Sulfa Antibiotics Unknown Drug Allergy Active Results Component Value Reference Range Notes COMPREHENSIVE METABOLIC PANE L Reviewed date:12/24/2023 02:10:09 PM Interpretation: Performing Lab:[facility], [facility] [address], [place], [address] Wallace Rousseau Notes/Report: FASTING:YES FASTING: YES VITAMIN D, 25-HYDROXY, LC/MS /MS Reviewed date:12/24/2023 02:10:09 PM Interpretation: Performing Lab:Anne [facility], [address] [place], [address] Wallace Rousseau MD Notes/Report: FASTING:YES FASTING: YES BARBARA IFA SCREEN W/REFL TO TIT ER AND PATTERN, IFA Reviewed date:12/30/2023 08:58:32 AM Interpretation: Performing Lab:Anne [facility], [address] [place], [address] Wallace Rousseau MD Notes/Report: FASTING:YES FASTING: YES T3, FREE Reviewed date:12/24/2023 02:10:09 PM Interpretation: Performing Lab:[facility], [address] [place], [address] Wallace Rousseau MD Notes/Report: FASTING:YES FASTING: YES RHEUMATOID FACTOR Reviewed date:12/30/2023 08:58:32 AM Interpretation: Performing Lab:[place], [facility], [address], [place], [address] Wallace Rousseau MD Notes/Report: FASTING:YES FASTING: YES HEMOGLOBIN A1c Reviewed date:12/24/2023 02:10:09 PM Interpretation: Performing Lab:[facility], [address] [place], [address] Wallace Rousseau Notes/Report: FASTING:YES FASTING: YES CBC (INCLUDES DIFF/PLT) Reviewed date:12/24/2023 02:10:09 PM Interpretation: Performing Lab:[facility], [address] [place], [address] Wallace Rousseau Notes/Report: FASTING:YES FASTING: YES VITAMIN B12/FOLATE, SERUM PA BONITA Reviewed date:12/24/2023 02:10:09 PM Interpretation: Performing Lab:[place] [facility], [address], [place], [address] Wallace Rousseau MD Notes/Report: FASTING:YES FASTING: YES T4, FREE Reviewed date:12/24/2023 02:10:09 PM Interpretation: Performing Lab:[facility], [address] [place], [address] Wallace Rousseau Notes/Report: FASTING:YES FASTING: YES TSH Reviewed date:12/24/2023 02:10:09 PM Interpretation: Performing Lab:[facility], [address] [place], [address] Wallace Rousseau Notes/Report: FASTING:YES FASTING: YES THYROID PEROXIDASE ANTIBODIE S Reviewed date:12/24/2023 02:44:01 PM Interpretation: Performing Lab:RICARD[place], [facility], [address] [facility], [place], [address] Otilio Wagner Notes/Report: FASTING:YES FASTING: YES THYROID PEROXIDASE ANTIBODIES 97 <9 IU/mL DEXAMETHASONE Reviewed date:03/11/2024 08:19:01 PM Interpretation: Performing Lab:[facility],, [address] [place], [address] Rani Morin MD,PhD,ROSITA Notes/Report: FASTING:YES FASTING: YES DEXAMETHASONE 112 Reference Ranges for Dexamethasone: Baseline: Less than 20 ng/dL 1 mg dexamethasone overnight: 180-550 ng/dL (8:00-10:00 AM) This test was developed and its analytical performance characteristics have been determined by [facility]. It has not been cleared or approved by FDA. This assay has been validated pursuant to the CLIA regulations and is used for clinical purposes. CORTISOL, TOTAL Reviewed date:03/01/2024 07:25:57 PM Interpretation: Performing Lab:[facility], [address], [place], [address] Wallace Rousseau MD Notes/Report: FASTING:YES FASTING: YES COMPREHENSIVE METABOLIC PANE L Reviewed date:03/04/2024 07:54:01 PM Interpretation: Performing Lab:[facility], [address] [place], [address] Wallace Rousseau Notes/Report: FASTING:YES FASTING: YES T3, FREE Reviewed date:03/04/2024 07:53:18 PM Interpretation: Performing Lab:[facility], [address], [place], [address] Wallace Rousseau MD Notes/Report: FASTING:YES FASTING: YES FERRITIN Reviewed date:03/04/2024 07:53:31 PM Interpretation: Performing Lab:[facility], [address], [place], [address] Wallace Rousseau MD Notes/Report: FASTING:YES FASTING: YES CBC (INCLUDES DIFF/PLT) Reviewed date:03/04/2024 07:57:27 PM Interpretation: Performing Lab:[facility], [address] [place], [address] Wallace Rousseau Notes/Report: FASTING:YES FASTING: YES VITAMIN B12/FOLATE, SERUM PA BONITA Reviewed date:03/04/2024 07:54:09 PM Interpretation: Performing Lab:[facility], [address] [place], [address] Wallace Rousseau MD Notes/Report: FASTING:YES FASTING: YES IRON AND TOTAL IRON BINDING CAPACITY Reviewed date:03/04/2024 07:54:16 PM Interpretation: Performing Lab:[facility], [address] [place], [address] Wallace Rousseau MD Notes/Report: FASTING:YES FASTING: YES LIPID PANEL Reviewed date:03/04/2024 07:54:23 PM Interpretation: Performing Lab:[facility], [address] [place], [address] DenishaOlivia Rousseau Notes/Report: FASTING:YES FASTING: YES T4, FREE Reviewed date:03/04/2024 07:53:24 PM Interpretation: Performing Lab[facility], [address] [place], [address] DenishaOlivia Rousseau Notes/Report: FASTING:YES FASTING: YES TSH Reviewed date:03/04/2024 07:53:11 PM Interpretation: Performing Lab:[facility], [address] [place], [address] DenishaRedwood Llccortney Rousseau Notes/Report: FASTING:YES FASTING: YES Reason For Referral No Information Medications Medication SIG (Take, Route, Frequency, Duration) Notes Start Date End Date Status Liothyronine Sodium 5 MCG TAKE 1 TABLET BY MOUTH EVERY DAY AT NOON for 90 Active Magnesium Glycinate 1000 MG *Ple ase review and pick correct strength-formulat ion from Glown[facility] options. If intended option is not shown, discontinue and re-order from Quick Search* Active Diclofenac Sodium 75 MG 1 tab(s) orally 2 times a day Active Levothyroxine Sodium 88 MCG 1 tab(s) orally once a day Active dexAMETHasone 1 MG 1 tab(s) orally once for 1 days 01/13/2024 Active Cyanocobalamin 1000 MCG/ML as directed intramuscularly once a week for 90 days 01/13/2024 Active Synthroid 88 MCG 1 tab(s) orally once a day for 90 days 01/13/2024 Active Social History Tobacco Use: Social History Observation Description Date Smoking Status WARNING: Information temporarily unavailable Smoking: Question Answer Notes Additional Findings: Tobacco User SOMETIMES OFF & ON Problems Problem Type SNOMED Code ICD Code Onset Dates Problem Status W/U Status Risk Notes Problem Hypothyroidism (97260988) Hypothyroidism, unspecified (E03.9) Active confirmed Problem Insomnia (222340307) Insomnia, unspecified (G47.00) Active confirmed Problem Autoimmune thyroiditis (90586112) Autoimmune thyroiditis (E06.3) Active confirmed Vital Signs Heart Rate 63 /min 12/19/2023 Blood pressure diastolic 77 mm Hg 12/19/2023 Height 70 in 12/19/2023 Blood pressure systolic 124 mm Hg 12/19/2023 Weight 203.2 lbs 12/19/2023 BMI 29.15 kg/m2 12/19/2023 Encounters Encounter Location Date Provider Diagnosis [address] [place] [address] 03/13/2024 Provider Migration Hypothyroidism, unspecified E03.9 ; Vitamin B12 deficiency anemia, unspecified D51.9 ; Autoimmune thyroiditis E06.3 and Abnormal weight gain R63.5 [facility] [place] [place] [address] 12/19/2023 Alisha Nichols Abnormal weight gain R63.5 ; Hypothyroidism, unspecified E03.9 ; Other fatigue R53.83 ; Body mass index [BMI] 29.0-29.9, adult Z68.29 and Insomnia, unspecified G47.00 SHELLY [facility] [address] [address] [place] [address] 01/13/2024 Alisha Nichols Autoimmune thyroiditis E06.3 ; Vitamin B12 deficiency anemia, unspecified D51.9 ; Insomnia, unspecified G47.00 ; Abnormal weight gain R63.5 and Impaired fasting glucose R73.01 [facility] [address] [place] [address] 02/13/2024 Lisa Scott [facility] [address] [place] [address] 02/13/2024 Lisa Scott Hypothyroidism, unspecified E03.9 Assessments Encounter Date Diagnosis (ICD Code) Assessment Notes Treatment Notes Treatment Clinical Notes Section Notes 03/13/2024 Hypothyroidism, unspecified (ICD-10 - E03.9) 03/13/2024 Vitamin B12 deficiency anemia, unspecified (ICD-10 - D51.9) 03/13/2024 Autoimmune thyroiditis (ICD-10 - E06.3) 12/19/2023 Hypothyroidism, unspecified (ICD-10 - E03.9) -Will send for thyroid US. -Pt symptoms consistent with Autoimmune Hypothyroidism, will screen with TPO antibodies. -- Continue current levothyroxine 88 mcg daily. - Check T4 and T3 levels along with TSH and TPO antibodies. - Consider adding liothyronine (T3) or switching to brand Synthroid or Tirosint based on lab results and absorption. -Thyroid Support supplement recommended - Purely Holistic, thyroid. - Thyroid ultrasound to evaluate for any abnormalities. Plan: Monitor thyroid function and adjust treatment as necessary. 12/19/2023 Abnormal weight gain (ICD-10 - R63.5) - Encourage a gluten-free diet to help with inflammatory markers, joint pain, and energy. - Autoimmune paleo diet guide provided. - Consider DST (cortisol test) in two months. Plan: Follow up on dietary changes and assess the impact on symptoms. 01/13/2024 Vitamin B12 deficiency anemia, unspecified (ICD-10 - D51.9) [facility] her [facility]- she can purchase needles and syringes from her [facility] for cheaper than it is dispenced with insurance. They made a note to her account with her B12 prescription. -Administer 1cc cyanocobalamin once weekly IM to help with fatigue. 01/13/2024 Autoimmune thyroiditis (ICD-10 - E06.3) -Will do trial of Brand Synthroid through [facility] to see if it helps patients fatigue. 02/13/2024 Hypothyroidism, unspecified (ICD-10 - E03.9) 12/19/2023 Other fatigue (ICD-10 - R53.83) -Will screen with BARBARA and RF considering her joint pain. 01/13/2024 Insomnia, unspecified (ICD-10 - G47.00) 03/13/2024 Abnormal weight gain (ICD-10 - R63.5) 12/19/2023 Body mass index [BMI] 29.0-29.9, adult (ICD-10 - Z68.29) 01/13/2024 Abnormal weight gain (ICD-10 - R63.5) 12/19/2023 Insomnia, unspecified (ICD-10 - G47.00) - Monitor sleep patterns and consider further evaluation for ADHD if symptoms persist. - Encourage healthy sleep hygiene and stress management techniques. Plan: Evaluate sleep issues and consider ADHD assessment if necessary. 01/13/2024 Impaired fasting glucose (ICD-10 - R73.01) 12/19/2023 Other Case discussed with GERMAIN Burciaga. Agree with plan. Lisa Scott MD 01/13/2024 Other The patient presented with concerns regarding weight gain, fatigue, sleep issues, anxiety, and headaches. She has a history of hypothyroidism and is currently on levothyroxine 88 mcg, increased from 75 mcg. Her last labs were done in May. She reports a decrease in caffeine intake but still experiences headaches and joint pain. The patient has tried cutting out gluten to address her fatigue and is considering adding liothyronine or switching to Synthroid or Tirosint based on lab results. She will be three months out from her cortisone shot in October at the beginning of Jan so we can re-evaluate her cortisol levels. The patient's free T4 level is 1.5, and her free T3 is 3.1. W Her B12 levels are suboptimal, and her A1C is 5.5, which is not in the prediabetes range but should be monitored given her elevated fasting BG. TPO antibodies were high, suggesting autoimmune hypothyroidism. She has not been screened for cholesterol with us but was found to have hyperlipidemia by her PCP. She endorses strong FH of high cholesterol and are on medication but she does not desire to be on a statin.. Her thyroid ultrasound showed increased vascular flow, consistent with thyroiditis, no nodules were found. BARBARA screen was negative, ruling out the need for rheumatology. [facility]: To complete at the end of Jan DST- TOTAL CORTISOL, DEXA CBC, CMP, TSH, FT3, FT4, B12, LIPID PANEL, IRON, FERRITIN, FOLATE Due to the nature of telephonic visits, the ability to do physical assessment was limited to what can be accomplished by patient directed telehealth visit based on instruction. Those limits are understood by the patient and myself. Impression is based on history, available information, and physical findings accomplished with telehealth visit. Chronic disease/problem list/ medication list reviewed and updated where indicated. Discussed diagnosis, plan including risks, benefits, and options of treatment. Advised to call for new, worsening, or persistent symptoms. Level of patient risk was of moderate complexity due to the documented nature of presentation, the information assessment required and the nature of the development of an evaluation and treatment plan as documented. PMH, FHx, SHx, Surgical Hx, Quality management review carried out and addressed as documented today as part of this visit. Medication list was reviewed and adjusted as indicated. Medication requiring a refill was addressed. Risk and benefits of any new medications were discussed and all questions were answered. Plan Of Treatment Pending Test Test Name Order Date Ultrasound thyroid 12/19/2023 Insurance Providers Payer Name Payer Address Payer Phone Subscriber Number Group Number Insured Name Patient Relationship to Insured Coverage Start Date Coverage End Date [employer] [address] [place] [address] [id number] Jillian Harrison Self - patient is the insured Medical (General) History Medical History History ICD Code Autoimmune thyroiditis E06.3
--- OUTSIDE RECORDS SUMMARY | 2024-07-26 11:08 | XMS_ITS ---
Author Organization [facility] Address [address] [address] Care Team Providers Care Wood Form Builder Name Role Phone Lisa Scott Primary Care Provider Migration, Provider Unavailable Unavailable Allergies Allergen (clinical drug ingredient) Drug/Non Drug Allergy documented on EMR Reaction Allergy Type Onset Date Status Substance with sulfonamide structure and antibacterial mechanism of action (substance) Sulfa Antibiotics Unknown Drug Allergy Active [facility]ASON [facility]IS[facility] Encounter Medications Medication SIG (Take, Route, Frequency, Duration) Notes Start Date End Date Status Levothyroxine Sodium 88 MCG 1 tab(s) orally once a day Active dexAMETHasone 1 MG 1 tab(s) orally once for 1 days 01/13/2024 Active Cyanocobalamin 1000 MCG/ML as directed intramuscularly once a week for 90 days 01/13/2024 Active Liothyronine Sodium 5 MCG 1 tab(s) orally once a day at noon for 30 days 02/13/2024 Active Synthroid 88 MCG 1 tab(s) orally once a day for 90 days 01/13/2024 Active Magnesium Glycinate 1000 MG *Ple ase review and pick correct strength-formulat ion from Medispan options. If intended option is not shown, discontinue and re-order from Quick Search* Active Diclofenac Sodium 75 MG 1 tab(s) orally 2 times a day Active Encounters Encounter [facility] Date [facility] [address] [address] 03/13/2024 Provider Migration Hypothyroidism, unspecified E03.9 ; Vitamin B12 deficiency anemia, unspecified D51.9 ; Autoimmune thyroiditis E06.3 and Abnormal weight gain R63.5 Assessments Encounter Date Diagnosis (ICD Code) Assessment Notes Treatment Notes Treatment Clinical Notes Section Notes 03/13/2024 Hypothyroidism, unspecified (ICD-10 - E03.9) 03/13/2024 Vitamin B12 deficiency anemia, unspecified (ICD-10 - D51.9) 03/13/2024 Autoimmune thyroiditis (ICD-10 - E06.3) 03/13/2024 Abnormal weight gain (ICD-10 - R63.5) Plan Of Treatment Medication Medication Name Sig Start Date Stop Date Notes dexAMETHasone 1 MG 1 tab(s) orally once for 1 days 024 Cyanocobalamin 1000 MCG/ML as directed i ntramuscularly once a week for 90 days 01/13/2024 Liothyronine Sodium 5 MCG 1 tab(s) orall y once a day at noon for 30 days 02/13/2024 Synthroid 88 MCG 1 tab(s) orally once a day for 90 days 01/13/2024 Progress Notes * Jillian RODRIGUEZDOB: 5 (39 yo F)Acc No.[id number]:03/13/2024 Patient: Jillian LYNN Provider: Deja Alberts :1985 A ge:38 Y S ex:Female Date:03/13/2024 Address:[address] [place] [address] Pcp:Lisa Scott Subjective: * Chief Complaints: * 1 . Multum To Medispan Conversion Encounter. * Medical History: * Medications: T aking Diclofenac Sodium 75 MG Tablet Delayed Release 1 tab(s) orally 2 times a day , Taking Magnesium Glycinate , Notes to Pharmacist: 1000 MG *Please review and pick correct strength-formulation from Medispan options. If intended option is not shown, discontinue and re-order from Quick Search*, Taking Levothyroxine Sodium 88 MCG Tablet 1 tab(s) orally once a day * Allergies: S ulfa Antibiotics. Objective: * Vitals: Assessment: * Assessment: 1. H ypothyroidism, unspecified - E03.9 (Primary) 2 . A utoimmune thyroiditis - E06.3 (Primary) 3 . V itamin B12 deficiency anemia, unspecified - D51.9? 4. A bnormal weight gain - R63.5 Plan: * Treatment: 2. A utoimmune thyroiditis Start Synthroid Tablet, 88 MCG, 1 tab(s), orally, once a day, 90 days, 90 Tablet, Refills 1. ? 3. V itamin B12 deficiency anemia, unspecified Start Cyanocobalamin Solution, 1000 MCG/ML, as directed, intramuscularly, once a week, 90 days, 12, Refills 1. 4. A bnormal weight gain Start dexAMETHasone Tablet, 1 MG, 1 tab(s), orally, once, 1 days, 1, Refills 0. * Billing Information: * Visit Code: * Procedure Codes: * Electronic signature of Prov chanelle Migration on 07/26/2024 at 11:08 AM CDT Sign off status: Pending * Provider: Deja townsend Migration Date: 05/13/2023 Generated for So velasquez/Fletcher/Sintiaitting on: 0 07/26/2024 11:08 AM CDT
--- OUTSIDE RECORDS SUMMARY | 2024-07-26 11:09 | XMS_ITS | Continuity of Care Document ---
Author Organization [facility] Address [address] [place] [address] Phone Care Team Providers Care Stonework Supervisor Name Role Phone Ricardo Vee MD Unavailable Unavailable Allergies, Adverse Reactions, Alerts Substance Reaction Status Criticality sulfanilamide Active No Information Medications Medication Instructions Dosage Effective Dates (start - stop) Status Comments Aleve 220 mg tablet take 1 tablet by oral route every 12 hours as needed 220 MG - Active LIOTHYRONINE SODIUM (unknown strength) take 2 Tablet by oral route 2 times every day Not Available - Active levothyroxine 75 mcg tablet TAKE 1 TABLET BY MOUTH EVERY DAY - Active Arthritis Pain Reliever 650 mg tablet,extended release take 2 tablet by oral route every 8 hours as needed swallowing whole with water. Do not break, crush, dissolve and/or chew. 1300 MG - Active multivitamin tablet take 1 Tablet by oral route every day with food 1 Tablet - Active Procedures Procedure Date Pt inelig neg scrn depres PREVENTATIVE-EST: 18-39 BODY MASS INDEX DOCD SYST BP LT 130 MM HG DIAST BP < 80 MM HG IMMUN ADMIN (INC PERCUTANEOUS) SINGLE, F IRST INJ TD TETANUS & DIPHTHERIA IMMUNIZ. (Teniva c) Pt inelig neg scrn depres PREVENTATIVE-EST: 18-39 Feb-12-2024 BODY MASS INDEX DOCD SYST BP LT 130 MM HG DIAST BP 80-89 MM HG GENERAL HEALTH PANEL FREE T4 (FT4) LIPID PANEL URINALYSIS, REFLEX (UA) URIC ACID, (S) VITAMIN D, 25-HYDROXY ROUTINE VENIPUNCTURE Pt inelig neg scrn depres PREVENTATIVE-EST: - BODY MASS INDEX DOCD SYST BP LT 130 MM HG DIAST BP 80-89 MM HG OFFICE [id number] BODY MASS INDEX DOCD SYST BP LT 130 MM HG DIAST BP 80-89 MM HG PREVENTATIVE-EST: 18- BODY MASS INDEX DOCD SYST BP LT 130 MM HG DIAST BP 80-89 MM HG PREVENTATIVE-EST: 18- BODY MASS INDEX DOCD SYST BP LT 130 MM HG DIAST BP < 80 MM HG GENERAL HEALTH PANEL LIPID PANEL URINALYSIS, REFLEX (UA) ROUTINE VENIPUNCTURE IMMUN ADMIN (INC PERCUTANEOUS) SINGLE, F IRST INJ FLU VAC NO PRSV 4 BUTCH, 0.5mL DOSAGE HEMOGLOBIN A1C HGA1C, GLYCO HEPATIC FUNCTION PANEL(LFT, LIVER) LIPASE ROUTINE VENIPUNCTURE [id number]-[id number]-[id number] Advance Directives Directive Yes / No Effective Date File Name No Information Encounters Encounter Description Practice Location Reason(s) For Visit Diagnoses Date Provider Providers Copied on Encounter [facility], [address], [place], [place], [id number] , tel: [phone] [facility] Hyperlipidemi a, unspecified hyperlipidemi a typeAbnormal urinalysis Jun- 5 Mariusz Silva. [address] [facility], [address], [id number], [place]. tel:[phone] PREVENTATIVE -EST: 39 [facility], [address], [place], [place], [address] , tel: [phone] [facility] preventive visit/ (chief complaint) Physical examHypothyro idism, unspecified typeHyperlipi demia, unspecified hyperlipidemi a type 5 Mariusz Silva. [address] [facility], [address], [id number], . tel:[phone] Referring Provider: Ricardo Vee [address], [address] . tel:[phone] PREVENTATIVE -EST: 39 [facility], [address], [place], [place], [address] , tel: [phone] [facility] preventative visit./ (chief complaint) Physical examHypothyro idism, unspecified typeHyperlipi demia, unspecified hyperlipidemi a typeBody mass index [BMI] 28.0-28.9, adult 4 Mariusz Alves [address] [facility], [address], [id number], . tel:[phone] Referring Provider: Ricardo Vee [address] [facility] [address], [address] . tel:[phone] [facility], [address], [place], [place], [address] , tel: [phone] [facility] Hypothyroidis m, unspecified type 3 Mariusz Silva. [address] [facility], [facility] [address], [place], [id number], . tel:[phone] PREVENTATIVE -EST: -39 [facility], [address], [place], [place], [address] , [place] tel: [phone] [facility] preventative visit/ (chief complaint) Body mass index [BMI] 29.0-29.9, adultPhysical examHyperlipi demia, unspecified hyperlipidemi a typeHypothyro idism, unspecified type May-0 3 Mariusz Silva. [address] [facility], [address], [id number], [place]. tel:[phone] Referring Provider: Ricardo Vee, [address], [address] . tel:[phone] [facility], [address], [place], [place], [address] , tel: [phone] [facility] Hypothyroidis m, unspecified type 2 Mariusz Silva. [address] [facility], [address], [id number], [place]. tel:[phone] OFFICE [id number] PANDED [facility], [address], [place], [place], [address] , tel: [phone] [facility] hypothyroidism (chief complaint) Hypothyroidis m, unspecified typeMixed hyperlipidemi a 2 Yoly Gonzalez. [address] [facility], [address], [id number], [place]. tel:[phone] Referring Provider: Ricardo Vee, [address], [address] . tel:[phone] [facility], [address], [place], [place], [address] , tel: [phone] [facility] Hypothyroidis m, unspecified type 2 Mariusz Silva. [address] [facility], [address], [id number], . tel:[phone] PREVENTATIVE -EST: 39 [facility], [address], [place], [place], [address] , [place] tel: [phone] [facility] preventative visit// (chief complaint) Routine general medical examination at a health care facilityArthr algia, unspecified joint 2 [address] [place] [address], [id number], [place]. tel:[phone] Referring Provider: Ricardo Vee, [address] [place] [address], [address] . tel:[phone] PREVENTATIVE -EST: 18-39 [facility], [address] [place] [address], [id number] , [place] tel: [phone] [facility] preventative visit/ (chief complaint) Routine general medical examination at a health care facilityBlood glucose elevated 0 Mariusz Silva. [address], [id number], . tel:[phone] Referring Provider: Ricardo Vee, [address] [place] [address], [address] . tel:[phone] CONSULT-OFFI CE-DETAILED [facility], [address] [place] [address], [id number] , [place] tel: [phone] [facility] Right upper quad pain (chief complaint) Right upper quadrant pain 0 Nelson Hull. [address] [place], [place], [id number], . tel:[phone] Referring Provider: Ricardo Vee, [address] [place] [address], [address] . tel:[phone] [facility], [address], [place], [place], [address] , [place] tel: [phone] [facility] Right upper quadrant pain Jun- 0- 0 Marisuz Silva. [address], [id number], [place]. tel:[phone] [facility], [address], [place], [place], [address] , tel: [phone] [facility] preventive exam// (chief complaint) Routine [facility] a [facility] care facilityRUQ abdominal pain 9 Mariusz Silva. [address] [facility], [address], [id number], . tel:[phone] Referring Provider: Ricardo Vee, [address], [address] . tel:[phone] [facility], [address], [place], [place], [address] , tel: [phone] [facility] Laceration of left index finger without foreign body without damage to nail, subsequent encounter 8 Maribell Yeung. [address] [facility], [address], [id number], [place]. tel:[phone] Referring Provider: Ricardo Vee, [address], [address] . tel:[phone] [facility], [address], [place], [place], [address] , tel: [phone] [facility] Encounter for general adult medical examination without abnormal findings 8 Mariusz Silva. [address] [facility], [address], [id number], [place]. tel:[phone] Referring Provider: Ricardo Vee, [address], [address] . tel:[phone] [facility], [address], [place], [place], [address] , tel: [phone] [facility] Epigastric painInfluenza Vaccine 4 Mariusz Silva. [address] [facility], [address], [id number], [place]. tel:[phone] Referring Provider: Ricardo Vee, [address], [address] . tel:[phone] [facility], [address], [place], [place], [address] , tel: [phone] [facility] Epigastric pain 4 Suman Underwood. [address] [facility], [address], [id number], . tel:[phone] Referring Provider: Ricardo Vee, [address], [address] . tel:[phone] [facility] [address], [place], [place], [address] , tel: [phone] [facility] Acute sinusitis, unspecified 1 Mariusz Silva. [address] [facility], [address], [id number], . tel:[phone] Referring Provider: Ricardo Vee, [address], [address] . tel:[phone] [facility] [address], [place], [place], [address] , tel: [phone] [facility] Routine general medical examination at a health care facilityRou ne general medical examination at a health care facility 1 Mariusz Silva. [address] [facility], [address], [id number], . tel:[phone] Referring Provider: Ricardo Vee, [address], [address] . tel:[phone] Family History Family Member Type Diagnosis Age At Onset Mother Problem (finding) diabetes melli tus in first degree relative Father Problem (finding) hypertension Maternal grandmother Problem (finding) Diabetes mellit us Father Problem (finding) raised blood lipids Maternal grandfather Problem (finding) Diabetes mellit us grandparent Problem (finding) Irritable bowel disease grandparent Problem (finding) renal cell carcinoma Paternal grandmother Problem (finding) Diabetes mellit us Mother Problem (finding) hypertension grandparent Problem (finding) hypertension Immunizations Vaccine Date Status Comments Td (adult) absorbed and preservative free administered Source: New Immuniza tion Record Fluzone Quad, preservative free, split virus, 0.5mL dosage administered Source: Source Unspe cified Fluzone Quad, preservative free, split virus, 0.5mL dosage administered Source: New Immuniza tion Record Influenza, injectable, quadrivalent, preservative free, 3 yrs or older administered Source: New Immuniz ation Record Payers Payer name Insurance type Covered alliance party ID Authoriza tion(s) [employer] COVENTRY CI [id number] [employer] COVENTRY CI [id number] [employer] COVENTRY CI [id number] CMR GHP ASO CI [id number] Social History Type Description Quantity Date Captured Comments Alcohol Use Details Unknown Caffeine Use Details Unknown Tobacco Use Status No Information Smoking Status No Information Sex Female Chief Complaint And Reason For Visit No Information Reason For Referral Reason For Referral No Information Plan Of Treatment Date Type Action Status Goal Dietary manageme nt education, guidance, and counseling completed Goal Dietary manageme nt education, guidance, and counseling completed Referral Ordered: Hepatobiliary iminodiacetic acid (HIDA) scan with gallbladder ejection fraction Appointment date/timeframe: 07/15/2019 ordered Appointment Jillian Mg BOOKED Future Order: Lab Order Lipid Pa marilyn W/Reflex To Direct LDL ([id number]), Sent on: Sent Future Order: Lab Order UA/Refle x To Microscopic ([id number]), Sent on: Sent Future Order: Radiology Order RU Q US (right upper quadrant ultrasound) ([id number]), Sent on: Sent History Of Present Illness Encounter Date Complaint History Of Prese nt Illness preventive visit/ Patient presen ts today to undergo annual wellness preventative visitstates she is doing wellno concerns todayrefuses influenza vaccinationdeclines Covid boostershe requests tetanus booster todayshe maintains follow-up with endocrinology Dr. Lisa Scott for management of hypothyroidismcompliant on thyroid medication as managed by endocrinology she is also on B12 supplements/ B12 shots per endocrinology for B12 deficiency she stateswe will request records from endocrinology for reviewno tobacco usealcohol socially up-to-date with vision, dental carepatient follows up with orthopedist Dr. Macedo for management of episodic right knee painrequires intra-articular corticosteroid injections PRNshe maintains follow-up with her [facility] physician Dr. Brown for ongoing female healthcare including management of her mammograms breast exams and Pap smearsPatient follows up with dermatology for regular skin checks-- Dr. MorrisonPatient follows up with Dr. 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 Gorman for management of hypothyroidismcompliant on thyroid medicationweight stable no palpitations no tremorsno tobacco usealcohol socially remains up-to-date with vision, dental carepatient follows up with podiatry for management of episodic right big toe pain-currently her Voltarenpodiatry suspects goutpatient follows up with [facility] Dr. Brown for ongoing female healthcare including management of her mammograms breast exams and Pap smearsPatient follows up with dermatology for regular skin checks-- Dr. MorrisonPatient follows up with Dr. Layne cardiology for management of lower extremity varicositieshyperlipidemiacontinues to verbally refuse medication for hyperlipidemianot following a strict diet not exercising currentlySharmaine works as a [employer] family history of colon or breast cancer past medical history past surgical history current medications and allergies all reviewed in EMR preventative visit/ Patient pres ents today to undergo annual wellness preventative visitDid not return for repeat TSH level having had her her thyroid replacement therapy adjusted august of last yearConcerned in that she is been gaining weight despite trying to follow a healthy diet and exercising regularlyNo concerns carraGd-bt-kejb with annual influenza vaccinationreceived bivalent Covid 19 vaccination from the pharmacypatient will receive tetanus booster from the pharmacyShe has quit bdxgcpmxm-mg-vwrm with vision, dental carePatient maintains follow-up with [facility] specialist Dr. Brown for ongoing female healthcare including management of her mammograms breast exams and Pap smearsPatient follows up with dermatology for regular skin checksPatient follows up with Dr. 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 She states on the levothyroxine she feels bloated and nauseated and gets a headache every afternoon. She has lots of questions regarding whether or not there are foods, vitamins, minerals she could eat or drink to help thyroid. Let her know that medication is really the only option for this. Also reviewed her cholesterol levels with her. Stressed low fat/low cholesterol diet and increased aerobic activity. She denies cp, sob, v/d, blood in stool. preventative visit// Patient pre sents today to undergo annual wellness preventative visitExperiencing pain involving her big toes bilaterally for the last one year at least she follows up with podiatrywas diagnosed with bunionsusing Voltaren gel which is helpingshselina experiences swelling and tenderness of the joints in her hands when she eats tomatoesshe is concerned she may have rheumatoid arthritis as her father has rheumatoid arthritisShe wears good cushioning shoes as she is a hairstylistShe stopped dkoeznhSv-sl-iymq with Covid 19 vaccination including zoswuienh-xl-olxm with annual influenza vaccinationtetanus vaccination nine years agoRemains up-to-date with vision, dental carePatient follows up with [facility] specialist Dr. Brown for ongoing female healthcare including management of her mammograms breast exams and Pap smearsPatient follows up with dermatology for regular skin checksPatient follows up with Dr. Layne cardiology for management of lower extremity varicositiesNot exercisingnot following a strict dietShe works as a hairstylistNo family history of colon or breast cancer past medical history past surgical history current medications and allergies all reviewed in EMR preventative visit/ Patient pres ents today to undergo annual wellness preventative visitDoing wellno concerns todayabdominal discomfort resolved with dietary modification-underwent G.I. evaluationFollowing CDC guidelines during Covid 19 pandemicshe requests influenza zqsjgydeffqSf-ha-yeij with vision, dental carePatient follows up with [facility] specialist Dr. Brown for ongoing female healthcare including management of her mammograms breast exams and Pap smearsPatient follows up with dermatology for regular skin checksPatient follows up with Dr. Layne cardiology for management of lower extremity varicositiesPatient follows up with podiatry for regular for checks-she will be following up with Dr. Mcclure currently exercising or following a strict low cholesterol low carbohydrate dietshe does smoke cigarettes sociallyalcohol MindframeAdolphe works as a Marinelayershe had a tetanus shot within the last 10 yearsNo family history of colon or breast cancer past medical history past surgical history current medications and allergies all reviewed in EMR Right upper quad jeison n (comments) 34 year that presents for RUQ pain. Will have attacks of pain in RUQ. Pain usually lasts for one day, last episode lasted 2 days. Pain in epigastric area after eating. Has nausea denies vomiting. No BM since Friday night (not uncommon for pt). Has not been eating due to the pain. Had some back pain between shoulder blades. Had RUQ US with pcp that was normal. Right upper quad pain preventive exam// Patient presen ts today to undergo annual wellness preventative visitNo concerns or complaintsdoing gabbi does mention she would like to see a gastroenterologistlong-standing history of several years of occasional epigastric and right upper quadrant abdominal discomfort with eating certain foods particularly greasy and fatty foodsshe underwent G.I. evaluation about five years ago which included right upper quadrant ultrasound and endoscopy which revealed no significant findingssymptoms occur possibly once to twice a month no weight loss no nausea vomiting no change in bowel habitssymptoms last for couple of minutes and then resolve spontaneously note dysphagia no painful swallowing no melena no blood in stool no reflux symptomsPatient maintains follow-up with her [facility] specialist Dr. Brown for ongoing female healthcare including management of her mammograms breast exams and Pap smearsPatient follows up with dermatology for regular skin checksPatient follows up with Dr. 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 Lisa Tristan for management request medical records for review Related to Hypothyroidism, unspecified type patient declines med icationcounseled on therapeutic laughter changespatient follows up with endocrinology Dr. Toledo and [facility]mer[facility] healthcare discussedfollow-up appointment in 12 months or sooner should concerns arise Related to Hyperlipidemia, unspecified hyperlipidemia type preventative healthc are discussed including appropriate diet exercise and weight controldiscussed the importance of healthy diet low in carbohydrates , sugars, starches and fats-Mediterranean dietdiscussed the need for regular exercise combining both aerobic and strength training exercises of moderate intensity for at least 150 minutes a weekcontinue maintaining vision, dental carerecommend limiting alcohol intakemaintain follow-up with [facility] for ongoing female healthcare including management of her mammograms breast exams and Pap smearsCBC CMP lipid panel urinalysisvaccination schedule discussed and reviewed at lengthtetanus booster as requested Related to Physical exam Disease prevention patient declines med ication treatment aware of the recommendationsgoals counseled therapeutic lifestyle changesgoals discussedmaintain follow-up with dermatology Dr. Morrison for regular skin checksongoin healthcare discussedrecommend follow-up appointment annually or PRN as needed Related to Hyperlipidemia, unspecified hyperlipidemia type maintain follow-up w [facility] endocrinology Dr. Gorman for managementTSH free [id number] results to endocrinology for ongoing management Related to Hypothyroidism, unspecified type preventative healthc are discussed including appropriate diet exercise and weight controldiscussed the importance of healthy diet low in carbohydrates and fats-Mediterranean dietdiscussed the need for regular exercise combining both aerobic and strength training exercises of moderate intensity for at least 150 minutes a weekcontinue maintaining vision, dental carerecommend limiting alcohol intakeweight loss programs resources reviewed and reinforced-maintain follow-up with shredded filler hopper feeder Dr. Gorman for management of weight managementvaccination schedule discussed and reviewed at lengthCBC CMP lipid panel urinalysis, uric acid level, vitamin D level( requested by patient she knows insurance may not cover this)TSH, free V4vuafzenm follow-up with [facility] Dr. Brown for ongoing female healthcare including management of her mammograms breast exams and Pap smears Related to Physical exam Weight loss Dietary management e ducation, guidance, and counseling Related to Body mass index (BMI) 28.0-28.9, adult Patient would like t o see an shredded filler hopper feeder for ongoing managementTSHcontinue medication patient referred to endocrinology Dr. Gorman for ongoing managementongoing healthcare discussedrecommend follow-up appointment in six months or sooner should concerns arise Related to Hypothyroidism, unspecified type Preventative healthc are discussed including appropriate diet exercise and weight controlweight loss programs and resources reviewed and reinforceddiscussed the importance of healthy well-balanced diet low in carbohydrates and fats-Mediterranean dietdiscussed the importance of regular exercise combining both aerobic and strength training exercises of moderate intensity for at least 150 minutes a weekcontinue maintaining vision, dental careCBC CMP lipid panel urinalysis TSHmaintain follow-up with [facility] Dr. Brown for ongoing female healthcare including management of her well woman visits.Vaccination schedule discussed at length Related to Physical exam Patient declines med ication treatment aware the recommendations and guidelinescounseled therapeutic Lifestyle changesdiscussed the importance of healthy well-balanced diet low in carbohydrates and fats-Mediterranean dietCMP lipid panel Related to Hyperlipidemia, unspecified hyperlipidemia type Dietary management e ducation, guidance, and counseling Related to Body mass index (BMI) 29.0-29.9, adult Immunizations Encouraged low fat/l ow cholesterol diet and aerobic exercise to 150 minutes per week. Will start treatment for this once thyroid level is in better control. Related to Mixed hyperlipidemia Pt to continue medic ation. If still having bloating/nausea/headache in next 4 weeks she is to call and we will try to get her on brand name synthroid. Recheck TSH and free T4 in 7 weeks. Related to Hypothyroidism, unspecified type CBC CMP ESR CRP TSH urinalysis uric acid level CCP rheumatoid factormaintain follow-up with podiatry for management of bunionsfurther recommendations to followongoing healthcare discussedrecommend follow-up appointment in six months or sooner should concerns arise Related to Arthralgia, unspecified joint Weight loss Safety precautions We are checking bloo d and getting a HIDA scan orderedOur office will call you with the resultsFurther recommendations based on resultsFollow a low fat diet Related to Right upper quadrant pain Right upper quadrant ultrasoundpatient referred to gastroenterology Dr. Kendall for evaluation of episodic epigastric right upper quadrant abdominal pain related to certain meals ongoing healthcare discussedfollow-up appointment annually or PRN as needed Related to RUQ abdominal pain Disease prevention Assessments Type Assessment Date assessment Hyperlipidemia, unspecified hype rlipidemia type assessment Abnormal urinalysis Patient Care Teams Name Effective Dates (start - stop) Status Members No Information
--- OUTSIDE RECORDS SUMMARY | 2024-07-26 11:09 | XMS_ITS | Clinical Summary ---
Author Organization [facility] Address [facility] [place] [address] Care Team Providers Care Apprentice Name Role Phone Ricardo Vee MD Primary Care Provider [phone] Social History Tobacco Use Types Packs/Day Years Used Date Smoking Tobacco: Never Assessed Comments Unknown Sex and Gender Information Value Date Recorded Sex Assigned at Not on file Legal Sex Female 8:14 AM CDT Gender Identity Not on file Sexual Orientation Not on file Plan of Treatment Health Maintenance Due Date Last Done Comments Cervical Cancer Screening Pa p Smear (Age 30 to 64) Every 3 Years 1984 Annual Physical 06/27/1987 Hepatitis C 2002 Hepatitis B Vaccines (1 of 3 - 19+ 3-dose series) 06/27/2003 Cervical Cancer Screening Pa p with HPV Testing (Age 30 to 64) Every 5 Years 2014 Cervical Cancer Screening wi th HPV 2014 COVID-19 Vaccine (2023-2 5 season) 2023 Mammogram Screening 2024 DTaP, Tdap and Td Vaccines ( 4 - Td or Tdap) 10/21/2024 10/21/2014, 01/06/2013, 11/03/2011 HPV Vaccines Aged Out No longer eligi ble based on patient's age to complete this topic Meningococcal B Vaccine Aged Out No l onger eligible based on patient's age to complete this topic Meningococcal Vaccine Aged Out No itm khloe eligible based on patient's age to complete this topic Pneumococcal Vaccine: Pediatrics (0 to 5 Years) and At-Risk Patients (6 to 64 Years) Aged Out No longer eligible b ased on patient's age to complete this topic RSV Immunizations Under 20 Months Aged Out No longer eligible b ased on patient's age to complete this topic Insurance [employer] Care Teams Apprentice Relationship Specialty [place] [address] [place] [address] PCP - General 07/08/19
--- OUTSIDE RECORDS SUMMARY | 2024-07-26 11:09 | XMS_ITS | Encounter Summary ---
Author Organization [facility] Health Address [address] [place] [address] Care Team Providers Care Executive Chairman Name Role Phone Denilson Brown MD Unavailable Mitchell Allen MD Primary Care Provider Ricardo Vee MD Primary Care Provider Encounter Details Date Type Department Care Team (Late st Contact Info) Description 04/05/2011 [facility] Outpatient Visit EXTERNAL NON-[facility] [place] [id number] [place] [address] [place] [address] Social History Tobacco Use Types Packs/Day Years Used Date Smoking Tobacco: Never Assessed Comments Yes Sex and Gender Information Value Date Recorded Sex Assigned at Female 05/12/2021 6:13 PM MAINSPRING FABRICATION SUPERVISOR Gender Identity Female 05/12/2021 6:13 PM MAINSPRING FABRICATION SUPERVISOR Sexual Orientation Straight 05/12/2021 6: 13 PM MAINSPRING FABRICATION SUPERVISOR documented as of this encounter Plan of Treatment Not on file documented as of this encounter Visit Diagnoses Not on filedocumented in this encounter Care Teams Executive Chairman Relationship Specialty [place] [address] [facility] [address] [place] [address] PCP - OBGYN 10/21/08 Mitchell Allen MD [address] [place] [address] [address] [place] [address] PCP - General 10/29/11 05/10/14 [place] [address] [place] [address] PCP - General Internal Medicine 05/11/14 documented as of this encounter
--- OUTSIDE RECORDS SUMMARY | 2024-07-26 11:09 | XMS_ITS | Encounter Summary ---
Author Organization [facility] Health Address [address] [place] [address] Care Team Providers Care Supervisor Public Message Service Name Role Phone Denilson Brown MD Unavailable Mitchell Allen MD Primary Care Provider [phone] Ricardo Vee MD Primary Care Provider [phone] Encounter Details Date Type Department Care Team (Late st Contact Info) Description 03/18/2011 [facility] Outpatient Visit EXTERNAL [place] [address] [facility] [employer] [address] [place] [address] Social History Tobacco Use Types Packs/Day Years Used Date Smoking Tobacco: Passive Smo ke Exposure - Never Smoker Cigarettes Comments:Socially-Desires To Quit Alcohol Use Standard Drinks/Week Comments Yes 0 (1 standard drink = 0.6 oz pur e alcohol) Comments Yes Sex and Gender Information Value Date Recorded Sex Assigned at Female 05/12/2021 6:13 PM TAPING MACHINE OPERATOR Gender Identity Female 05/12/2021 6:13 PM TAPING MACHINE OPERATOR Sexual Orientation Straight 05/12/2021 6: 13 PM TAPING MACHINE OPERATOR documented as of this encounter Plan of Treatment Not on file documented as of this encounter Visit Diagnoses Not on filedocumented in this encounter Care Teams Supervisor Public Message Service Relationship Specialty [place] [address] [facility] [address] [place] [address] PCP - OBGYN 10/21/08 Mitchell Allen MD [address] [place] [address] [address] [place] [address] PCP - General 10/29/11 05/10/14 [place] [address] [address] PCP - General Internal Medicine 05/11/14 documented as of this encounter
--- NOTE | 2024-07-26 11:31 | PC.NURSE ---
Pt voices feeling of being on boat & swaying. States dizziness worse when she turns her head. C/O sinus pressure that radiates to bilateral ears, with ears feeling full
[2024-07-26] MEDS: SODIUM CHLORIDE 0.9% IV 1,000 ML 999 ML IV CONT (12:50)
[2024-07-26] MEDS: MECLIZINE HCL 25 MG TABLET PO (12:51)
[2024-07-26] MEDS: ONDANSETRON INJ 4 MG/2 ML VIAL IV PUSH (12:51)
--- NOTE | 2024-07-26 13:10 | ED_ITS ---
HPI - General Adult General Chief complaint: Dizziness Stated complaint: VERTIGO? Time Seen by Provider: 07/26/24 12:03 History of Present Illness HPI narrative: Patient is a 39-year-old female who presents ER with dizziness. Began this morning when waking up. Any time she lays backwards she gets spinning dizziness with some feelings of being flushed and nauseous. She feels better if she sits up and does not move. No ringing in the ears. No sinus congestion or sore throat or productive cough. No numbness or weakness to an arm or leg. Related Data Home Medications ?Medication ?Instructions ?Recorded ?Confirmed ?Last Taken ?Type cyanocobalamin (vitamin B-12) 1,000 mcg subcut WEEKLY 03/13/24 03/13/24 Unknown History 1,000 mcg/mL injection solution liothyronine 5 mcg tablet 5 mcg PO DAILY 03/13/24 03/13/24 Unknown History Allergies Allergy/AdvReac Type Severity Reaction Status Date / Time Sulfa (Sulfonamide Allergy Mild Unknown Verified 07/26/24 11:47 Antibiotics) Review of Systems Review of Systems: All systems reviewed & are unremarkable except as noted in HPI and below Constitutional: Constitutional: Reports no additional constitutional complaints ENT: Reports system reviewed and no additional complaints, except as documented Cardiovascular: Cardiovascular: Reports no additional cardiovascular complaints Respiratory: Respiratory: Reports no additional respiratory complaints Neurologic: Reports system reviewed and no additional complaints, except as d ocumented [facility] Past Medical History Medical History (Updated 07/26/24 @ 14:55 by Lionel Hay MD) Healthy female adult Surgical History Surgical History (Updated 07/26/24 @ 13:11 by Lionel Hay MD) No pertinent past surgical history Exam Narrative: GENERAL: Well-appearing, well-nourished, and in no acute distress. HEAD: Normocephalic, atraumatic. EYES: PERRL and EOMI. ENT: Mucous membranes moist. TMs normal bilaterally. Ear canals free of cerumen. CHEST: Clear to auscultation. No respiratory distress. HEART: Regular rate and rhythm. Normal peripheral pulses. ABDOMEN: Soft, nontender, nondistended. EXTREMITIES: Normal range of motion. No edema. SKIN: Warm, dry, no rash. NEURO: Alert and oriented x3. PSYCH: Normal mood and affect. Course Course Emergency Course: Patient feels improved with fluids meclizine no symptoms are not fully resolved. Feels comfortable discharge to schedule meclizine. Vital Signs Vital signs: Vital Signs Temperature 97.8 F 07/26/24 10:02 Pulse Rate 70 07/26/24 10:02 Respiratory Rate 16 07/26/24 10:02 Blood Pressure 153/78 H 07/26/24 10:02 Pulse Oximetry 100 07/26/24 10:02 Oxygen Delivery Room Air 07/26/24 10:02 Temperature 97.8 F 07/26/24 10:02 Pulse Rate 70 07/26/24 10:02 Respiratory Rate 16 07/26/24 10:02 Blood Pressure 153/78 H 07/26/24 10:02 Pulse Oximetry 100 07/26/24 10:02 Oxygen Delivery Room Air 07/26/24 10:02 Medical Decision Making Vital Signs Vital Signs: Vital Signs Temperature 97.8 F 07/26/24 10:02 Pulse Rate 70 07/26/24 10:02 Respiratory Rate 16 07/26/24 10:02 Blood Pressure 153/78 H 07/26/24 10:02 Pulse Oximetry 100 07/26/24 10:02 Oxygen Delivery Room Air 07/26/24 10:02 Temperature 97.8 F 07/26/24 10:02 Pulse Rate 70 07/26/24 10:02 Respiratory Rate 16 07/26/24 10:02 Blood Pressure 153/78 H 07/26/24 10:02 Pulse Oximetry 100 07/26/24 10:02 Oxygen Delivery Room Air 07/26/24 10:02 Lab Data Labs: Lab Results 07/26/24 Range/Units 12:56 Influenza A (RT-PCR) Negative (Negative) Influenza B (RT-PCR) Negative (Negative) RSV (RT-PCR) Negative (Negative) SARS-CoV-2 RNA (RT-PCR) Negative (Negative) Discharge Plan Discharge Clinical Impression: Vertigo Patient Disposition: Home, Self-Care Condition: Stable Instructions: Vertigo (ED) Additional Instructions: Return ER if you have worsening dizziness, you can not keep down food water, you lose consciousness, or have additional concerns. Patient Language: Thai Prescriptions: New meclizine 25 mg tablet 25 mg PO TID Qty: 14 0RF No Action liothyronine 5 mcg tablet 5 mcg PO DAILY cyanocobalamin (vitamin B-12) 1,000 mcg/mL solution 1,000 mcg subcut WEEKLY Follow-up/Referrals: UNKNOWN,DOCTOR [Primary Care Provider] -
--- OUTSIDE RECORDS SUMMARY | 2024-07-26 13:25 | XMS_ITS | Clinical Summary ---
Author Organization [facility] Address [facility] [place] [address] Care Team Providers Care Project Finance Analyst Name Role Phone Ricardo Vee MD Primary Care Provider [phone] Social History Tobacco Use Types Packs/Day Years [...] this topic Meningococcal Vaccine Aged Out No tim khloe eligible based on patient's age to complete this topic Pneumococcal Vaccine: Pediatrics (0 to 5 Years) and At-Risk Patients (6 to 64 Years) Aged Out No longer eligible b ased on patient's age to complete this topic RSV Immunizations Under 20 Months Aged Out No longer eligible b ased on patient's age to complete this topic Insurance [employer] Care Teams Project Finance Analyst Relationship Specialty [place] [address] [place] [address] PCP - General 07/08/19
--- OUTSIDE RECORDS SUMMARY | 2024-07-26 13:25 | XMS_ITS | Encounter Summary ---
Author Organization [facility] Health Address [address] [place] [address] Care Team Providers Care Reservation Agent Name Role Phone Denilson Brown MD Unavailable [phone] Mitchell Allen MD Primary Care Provider Ricardo Vee MD Primary Care Provider Encounter Details Date Type Department Care Team (Late st Contact Info) Description 03/18/2011 [facility] Outpatient Visit EXTERNAL [place] [address] [facility] [employer] [address] [place] [address] Social History Tobacco Use Types Packs/Day Years Used Date Smoking Tobacco: Passive Smo ke Exposure - Never Smoker Cigarettes Comments:Socially-Desires To Quit Alcohol Use Standard Drinks/Week Comments Yes 0 (1 standard drink = 0.6 oz pur e alcohol) Comments Yes Sex and Gender Information Value Date Recorded Sex Assigned at Female 05/12/2021 6:13 PM GENDER STUDIES PROFESSOR Gender Identity Female 05/12/2021 6:13 PM GENDER STUDIES PROFESSOR Sexual Orientation Straight 05/12/2021 6: 13 PM GENDER STUDIES PROFESSOR documented as of this encounter Plan of Treatment Not on file documented as of this encounter Visit Diagnoses Not on filedocumented in this encounter Care Teams Reservation Agent Relationship Specialty [place] [address] [facility] [address] [place] [address] PCP - OBGYN 10/21/08 Mitchell Allen MD [address] [place] [address] [address] [place] [address] PCP - General 10/29/11 05/10/14 [place] [address] [address] PCP - General Internal Medicine 05/11/14 documented as of this encounter
--- OUTSIDE RECORDS SUMMARY | 2024-07-26 13:25 | XMS_ITS | CONTINUITY OF CARE DOCUMENT ---
Author Name [email or web address] Address Unknown Organization [facility] Address [address] [facility] [address] [place] [address] Phone [phone] Care Team Providers Care Forest Manager Name Role Phone Andrez CAM, John Unavailable [phone] WILDER CAM, MARISA Unavailable [phone] WILDER CAM, MARISA Unavailable [phone] PROBLEMS Condition Status Date Provider Notes Venous hypertension - BLE inflammation active Anisa Beltrán RN Tobacco abuse active John Maguire MD ENCOUNTERS Date Type Provider Location Encounter Diag nosis - In-person encounter Office Visit [facility] - In-person encounter Office Visit John Maguire MD [facility] Tobacco abuse - In-person encounter Office Visit John Maguire MD [facility] Venous hypertension - BLE inflammation VITAL [...] RN blood pressure, diastolic 60 mm[Hg] [facility], systolic 122 mm[Hg] Una forbes [facility] pulse rate 82 /min [facility] E&M 16 /min [facility] oxygen saturation, oximetry 99 % [facility] weight E&M 196 [lb_av] [facility] height E&M 71 [in_i] [facility] Body Mass Index (Ratio) 27.33 kg/m2 Ron Beltrán RN blood pressure, resting No Michi Brooks blood pressure, diastolic 80 mm[Hg] Juan Brooks blood pressure, systolic 116 mm[Hg] Roger Brooks oxygen saturation, oximetry 99 % Lyly Brooks respiratory rate E&M 16 /min Lyly Brooks pulse rate 67 /min Lyly Brooks blood pressure, cuff size regular Juan Brooks height E&M 71 [in_i] Lyly Brooks weight [...] of years as a smoker 8 a [facility] smoking history, tot al pack/day 10 [...] current every day smoker 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
--- OUTSIDE RECORDS SUMMARY | 2024-07-26 13:25 | XMS_ITS | Encounter Summary ---
Author Organization [facility] Health Address [address] [place] [address] Care Team Providers Care Pediatric Physiatrist Name Role Phone Denilson Brown MD Unavailable [phone] Mitchell Allen MD Primary Care Provider [phone] Ricardo Vee MD Primary Care Provider Encounter Details Date Type Department Care Team (Late st Contact Info) Description 04/05/2011 [facility] Outpatient Visit EXTERNAL NON-[facility] [place] Brown [place] [id number] [place] [address] [place] [address] Social History Tobacco Use Types Packs/Day Years Used Date Smoking Tobacco: Never Assessed Comments Yes Sex and Gender Information Value Date Recorded Sex Assigned at Female 05/12/2021 6:13 PM BUTTON MACHINE OPERATOR Gender Identity Female 05/12/2021 6:13 PM BUTTON MACHINE OPERATOR Sexual Orientation Straight 05/12/2021 6: 13 PM BUTTON MACHINE OPERATOR documented as of this encounter Plan of Treatment Not on file documented as of this encounter Visit Diagnoses Not on filedocumented in this encounter Care Teams Pediatric Physiatrist Relationship Specialty [place] [address] [facility] [address] [place] [address] PCP - OBGYN 10/21/08 Mitchell Allen MD [address] [place] [address] [address] [place] [address] PCP - General 10/29/11 05/10/14 [place] [address] [place] [address] PCP - General Internal Medicine 05/11/14 documented as of this encounter
--- OUTSIDE RECORDS SUMMARY | 2024-07-26 13:25 | XMS_ITS | Encounter Summary ---
Author Organization [facility] Address [address] [place] [address] Care Team Providers Care Charge Poster Name Role Phone Denilson Brown MD Unavailable [phone] Ricardo Vee MD Primary Care Provider [phone] Encounter Details Date Type Department Care Team (Late st Contact [facility]) Description 06/09/2023 Lab Requisition [facility] - DermPath Lab [address] [facility] [place] [id number] [place] [address] [address] Social History Tobacco Use Types [...] Sex Assigned at Female 05/12/2021 6:13 PM TYPESETTING MACHINE TENDER Gender Identity Female 05/12/2021 6:13 PM TYPESETTING MACHINE TENDER Sexual Orientation Straight 05/12/2021 6: 13 PM TYPESETTING MACHINE TENDER documented as of this encounter Functional Status [...] Diagnosis Comments DERMATOPATHOLOGY Routine 06/09/2023 3:33 AM TYPESETTING MACHINE TENDER documented in this encounter Results * DERMATOPATHOLOGY (06/09/2023 3:33 AM TYPESETTING MACHINE TENDER) Case Report Dermatopathology Report Case: [id number] Authorizing Provider: Adam Ritter MD Collected: 06/09/2023 03:33 AM Ordering Location: [facility] Lab Received: 06/09/2023 02:43 PM Pathologist: Aliza Gorman MD Specimen: Skin, right dorsal forearm 4 4:50 PM [facility] Final Diagnosis Specimen A. 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 The specimen consists of a punch biopsy measuring 4x4x4 mm. Jar 0. 4 4:50 PM [facility] Microscopic Description Specimen A. SKIN, [...] psoriasiform keratosis or psoriasis. 4 4:50 PM TYPESETTING MACHINE TENDER DERMATOPATHOLOGY LABORATORY Disclaimer An external and internal positive and negative controls are appropriate for the histochemical, immunohistochemical and immunofluorescence stain(s) in this case (if any), except where stated explicitly. The performance characteristics of the stain(s) cited in this report were developed and its performance characteristic determined by the Dermatopathology Laboratory at [facility], directed by Dr. Aniyah Lilly. These tests need not be, and therefore are not, approved by the [place] Food and Drug Administration. The tests are used for clinical purposes. Billing Codes Specimen Charges Stain Charges 57972 1 27476 39323 1 1 4 4:50 PM TYPESETTING MACHINE TENDER DERMATOPATHOLOGY LABORATORY Embedded Images 4 4:50 PM TYPESETTING MACHINE TENDER DERMATOPATHOLOGY LABORATORY Pathology/Cytolo gy TISSUE SPECIMEN FROM SKIN / Unknown 06/09/2023 3:33 AM TYPESETTING MACHINE TENDER 06/09/2023 2:43 PM TYPESETTING MACHINE TENDER Adam Ritter MD LAB - PATHOLOGY/CY TOLOGY ORDERABLES DERMATOPATHOLOGY LABORATORY [facility] - Department of Dermatology [address], [address] [phone] documented in this encounter Visit Diagnoses Not on filedocumented in this encounter Care Teams Charge Poster Relationship Specialty [place] [address] [facility] [address] [place] [address] PCP - OBGYN 10/21/08 [place] [address] [id number] PCP - General Internal Medicine 05/11/14 documented as of this encounter
--- OUTSIDE RECORDS SUMMARY | 2024-07-26 13:25 | XMS_ITS | Encounter Summary ---
Author Organization [facility] Health Address [address] [place] [address] Care Team Providers Care Improvement Intern Name Role Phone Denilson Brown MD Unavailable Mitchell Allen MD Primary Care Provider [phone] Ricardo Vee MD Primary Care Provider [phone] Encounter Details Date Type Department Care Team (Late st Contact Info) Description 08/07/2012 [facility] Outpatient Visit EXTERNAL [place] [address] [facility] [employer] [address] [place] [address] Social History Tobacco Use Types Packs/Day Years Used Date Smoking Tobacco: Passive Smo ke Exposure - Never Smoker Cigarettes Comments:Socially-Desires To Quit Alcohol Use Standard Drinks/Week Comments Yes 0 (1 standard drink = 0.6 oz pur e alcohol) Comments Yes Sex and Gender Information Value Date Recorded Sex Assigned at Female 05/12/2021 6:13 PM BRAKE ASSEMBLER Gender Identity Female 05/12/2021 6:13 PM BRAKE ASSEMBLER Sexual Orientation Straight 05/12/2021 6: 13 PM BRAKE ASSEMBLER documented as of this encounter Plan of Treatment Not on file documented as of this encounter Visit Diagnoses Not on filedocumented in this encounter Care Teams Improvement Intern Relationship Specialty [place] [address] [facility] [address] [place] [address] PCP - OBGYN 10/21/08 Mitchell Allen MD [address] [place] [address] [address] [place] [address] PCP - General 10/29/11 05/10/14 [place] [address] [address] PCP - General Internal Medicine 05/11/14 documented as of this encounter
--- OUTSIDE RECORDS SUMMARY | 2024-07-26 13:25 | XMS_ITS | Continuity of Care Document ---
Author Organization [facility] Address [address] [place] [address] Phone Care Team Providers Care Lye Bath Operator Name Role Phone Ricardo Vee MD Unavailable [...] HG DIAST BP 80-89 MM HG OFFICE [id number] BODY MASS INDEX DOCD SYST BP LT [...] HEPATIC FUNCTION PANEL(LFT, LIVER) LIPASE ROUTINE VENIPUNCTURE [id number] Advance Directives Directive Yes / No Effective Date File Name No Information Encounters Encounter Description Practice Location Reason(s) For Visit Diagnoses Date Provider Providers Copied on Encounter [facility], [address], [place], [place], [address] , tel: [phone] [facility] Hyperlipidemi a, unspecified hyperlipidemi a typeAbnormal urinalysis Jun- 5 Mariusz Silva. [address] [facility], [address], [id number], [place]. tel:[phone] PREVENTATIVE -EST: 39 [facility], [address], [place], [place], [address] , tel: [phone] [facility] preventive visit/ (chief complaint) Physical examHypothyro idism, unspecified typeHyperlipi demia, unspecified hyperlipidemi a type 5 Mariusz Silva. [address] [facility], [address], [id number], . tel:[phone] Referring Provider: Ricardo Vee [address], [address] . tel:[phone] PREVENTATIVE -EST: 39 [facility], [address], [place], [place], [address] , tel: [phone] [facility] preventative visit./ (chief complaint) Physical examHypothyro idism, unspecified typeHyperlipi demia, unspecified hyperlipidemi a typeBody mass index [BMI] 28.0-28.9, adult 4 Mariusz Alves [address] [facility], [address], [id number], . tel:[phone] Referring Provider: Ricardo Vee [address] [facility] [address], [address] . tel:[phone] [facility], [address], [place], [place], [address] , tel: [phone] [place] Hypothyroidis m, unspecified type 3 Mariusz Silva. [address] [facility], [facility] [address], [place], [address], . tel:[phone] PREVENTATIVE -EST: -39 [facility], [address], [place], [place], [address] , [place] tel: [phone] [facility] preventative visit/ (chief complaint) Body mass index [BMI] 29.0-29.9, adultPhysical examHyperlipi demia, unspecified hyperlipidemi a typeHypothyro idism, unspecified type May-0 3 Mariusz Silva. [address] [facility], [address], [id number], [place]. tel:[phone] Referring Provider: Ricardo Vee, [address], [address] . tel:[phone] [facility], [address], [place], [place], [address] , tel: [phone] [place] Hypothyroidis m, unspecified type 2 Mariusz Silva. [address] [facility], [address], [id number], [place]. tel:[phone] OFFICE GKNHK[facility]IPL[facility]EX PANDED [facility], [address], [place], [place], [address] , tel: [phone] [place] hypothyroidism (chief complaint) Hypothyroidis m, unspecified typeMixed hyperlipidemi a 2 Yoly Gonzalez. [address] [facility], [address], [id number], [place]. tel:[phone] Referring Provider: Ricardo Vee, [address], [address] . tel:[phone] [facility], [address], [place], [place], [address] , tel: [phone] [place] Hypothyroidis m, unspecified type 2 Mariusz Silva. [address] [facility], [address], [address], . tel:[phone] PREVENTATIVE -EST: 39 [facility], [address], [place], [place], [address] , [place] tel: [phone] [facility] preventative visit// (chief complaint) Routine general medical examination at a health care facilityArthr algia, unspecified joint 2 [address] [place] [address], [id number], [place]. tel:[phone] Referring Provider: Ricardo Vee, [address] [place] [address], [address] . tel:[phone] PREVENTATIVE -EST: 18-39 [facility], [address] [place] [address], [id number] , [place] tel: [phone] [facility] preventative visit/ (chief complaint) Routine general medical examination at a health care facilityBlood glucose elevated 0 Mariusz Silva. [address], [id number], . tel:[phone] Referring Provider: Ricardo Vee, [address] [place] [address], [address] . tel:[phone] CONSULT-OFFI CE-DETAILED [facility], [address] [place] [address], [id number] , [place] tel: [phone] [facility] Right upper quad pain (chief complaint) Right upper quadrant pain 0 Nelson Hull. [address] [place], [place], [address], . tel:[phone] Referring Provider: Ricardo Vee, [address] [place] [address], [address] . tel:[phone] [facility], [address], [place], [place], [address] , [place] tel: [phone] [facility] Right upper quadrant pain Jun- 0- 0 Mariusz Silva. [address], [id number], [place]. tel:[phone] [facility], [address], [place], [place], [address] , tel: [phone] [facility] preventive exam// (chief complaint) Routine general medical examination at a [facility] care facilityRUQ abdominal pain 9 Mariusz Silva. [address] [facility], [address], [id number], . tel:[phone] Referring Provider: Ricardo Vee, [address], [address] . tel:[phone] [facility], [address], [place], [place], [address] , tel: [phone] [facility] Laceration of left index finger without foreign body without damage to nail, subsequent encounter 8 Maribell Yeung. [address] [facility], [address], [address], [place]. tel:[phone] Referring Provider: Ricardo Vee, [address], [address] . tel:[phone] [facility], [address], [place], [place], [address] , tel: [phone] [facility] Encounter for general adult medical examination without abnormal findings 8 Mariusz Silva. [address] [facility], [address], [address], [place]. tel:[phone] Referring Provider: Ricardo Vee, [address], [address] . tel:[phone] [facility], [address], [place], [place], [address] , tel: [phone] [facility] Epigastric painInfluenza Vaccine 4 Mariusz Silva. [address] [facility], [address], [id number], [place]. tel:[phone] Referring Provider: Ricardo Vee, [address], [address] . tel:[phone] [facility], [address], [place], [place], [address] , tel: [phone] [facility] Epigastric pain 4 Suman Underwood. [address] [facility], [address], [address], . tel:[phone] Referring Provider: Ricardo Vee, [address], [address] . tel:[phone] [facility] [address], [place], [place], [address] , tel: [phone] [facility] Acute sinusitis, unspecified 1 Mariusz Silva. [address] [facility], [address], [id number], . tel:[phone] Referring Provider: Ricardo Vee, [address], [address] . tel:[phone] [facility] [address], [place], [place], [address] , tel: [phone] [facility] Routine general medical examination at a health care facilityRou ne general medical examination at a health care facility 1 Mariusz Silva. [address] [facility], [address], [address], . tel:[phone] Referring Provider: Ricardo Vee, [address], [address] . tel:[phone] Family History Family Member Type Diagnosis Age At Onset grandparent Problem (finding) hypertension Mother Problem (finding) hypertension Paternal grandmother Problem (finding) Diabetes mellit us grandparent Problem (finding) renal cell carcinoma grandparent Problem (finding) Irritable bowel disease Maternal grandfather Problem (finding) Diabetes mellit us Father Problem (finding) raised blood lipids Maternal grandmother Problem (finding) Diabetes mellit us Father Problem (finding) hypertension Mother Problem (finding) diabetes melli tus in first degree relative Immunizations Vaccine Date Status Comments Td (adult) [...] Record Payers Payer name Insurance type Covered republican ID Authoriza tion(s) [employer] COVENTRY CI [id number] [employer] COVENTRY CI [id number] [employer] COVENTRY CI [id number] CMR GHP ASO CI [id number] Social History Type Description Quantity Date Captured [...] Lipid Pa marilyn W/Reflex To Direct LDL ([id number]), Sent on: Sent Future Order: Lab Order UA/Refle x To Microscopic ([id number]), Sent on: Sent Future Order: Radiology Order RU Q US (right upper quadrant ultrasound) ([id number]), Sent on: Sent History Of Present Illness [...] corticosteroid injections PRNshe maintains follow-up with her [facility] physician Dr. Brown for ongoing female healthcare including management of her mammograms breast exams and Pap smearsPatient follows up with dermatology for regular skin checks-- Dr. MorrisonPatient follows up with Dr. Layne cardiology for management of lower extremity varicositieshyperlipidemiadeclines and refuses medication for hyperlipidemiahas not been exercising formallynot following a strict diet she statesSharmaine works as a UgenieNo family history of colon or breast cancer [...] her Voltarenpodiatry suspects goutpatient follows up with [facility] Dr. Brown for ongoing female healthcare including management of her mammograms breast exams and Pap smearsPatient follows up with dermatology for regular skin checks-- Dr. MorrisonPatient follows up with Dr. Layne cardiology for management of lower extremity varicositieshyperlipidemiacontinues to verbally refuse medication for hyperlipidemianot following a strict diet not exercising currentlySharmaine works as a [employer] family history of colon or breast cancer [...] a healthy diet and exercising regularlyNo concerns vfpclRx-sp-deoy with annual influenza vaccinationreceived bivalent Covid 19 vaccination from the pharmacypatient will receive tetanus booster from the pharmacyShe has quit ihxcveziq-nj-clvo with vision, dental carePatient maintains follow-up with [facility] specialist Dr. 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 Brown for ongoing female healthcare [...] guidelines during Covid 19 pandemicshe requests influenza clzuseymgsxZa-bl-deki with vision, dental carePatient follows up with [facility] specialist Dr. Brown for ongoing female healthcare [...] low carbohydrate dietshe does smoke cigarettes sociallyalcohol OcuCure TherapeuticsAdolphe works as a Ugenieshe had a tetanus shot within the last [...] no reflux symptomsPatient maintains follow-up with her [facility] specialist Dr. Brown for ongoing female healthcare including management of her mammograms breast exams and Pap smearsPatient follows up with dermatology for regular skin checksPatient follows up with Dr. Layne cardiology for management of lower extremity varicositiesPatient has not been exercising or following a strict dietshe does smoke cigarettes sociallyalcohol PicketReport.comselina works as a tfgenekedvlPr-sp-owwd with annual influenza vaccinationshe had a tetanus shot within the last 10 yearsNo family history of colon or breast cancer past medical history past surgical history current medications and allergies all reviewed in EMR Functional Status Date Functional Assessmen t No Information Instructions Date Instruction Additional Infor john maintain follow-up w [facility] endocrinology Dr. Lisa Tristan for management request medical records for review Related to Hypothyroidism, unspecified type patient declines med icationcounseled on therapeutic laughter changespatient follows up with endocrinology Dr. Toledo and [facility] discussedfollow-up appointment in 12 months or [...] dental carerecommend limiting alcohol intakemaintain follow-up with [facility] for ongoing female healthcare including management of [...] Hyperlipidemia, unspecified hyperlipidemia type maintain follow-up w [facility] endocrinology Dr. Gorman for managementTSH free X8iklgwkb results to endocrinology for ongoing management Related [...] programs resources reviewed and reinforced-maintain follow-up with merchandiser seasonal Dr. Gorman for management of weight managementvaccination schedule discussed and reviewed at lengthCBC CMP lipid panel urinalysis, uric acid level, vitamin D level( requested by patient she knows insurance may not cover this)TSH, free I3acrcbvll follow-up with [facility] Dr. Brown for ongoing female healthcare including management of her mammograms breast exams and Pap smears Related to Physical exam Weight loss Dietary management e ducation, guidance, and counseling Related to Body mass index (BMI) 28.0-28.9, adult Patient would like t o see an merchandiser seasonal for ongoing managementTSHcontinue medication patient referred to [...] CMP lipid panel urinalysis TSHmaintain follow-up with [facility] Dr. Brown for ongoing female healthcare including [...]
--- OUTSIDE RECORDS SUMMARY | 2024-07-26 13:25 | XMS_ITS | Clinical Summary ---
Author Organization [facility] Address [address] [place] [address] Care Team Providers Care Graphic Production Artist Name Role Phone Denilson Brown MD Unavailable [phone] Ricardo Vee MD Primary Care Provider [phone] Source Comments [facility],non-owned Affiliates and Associated Physician Practices is amultiple site organization consisting of ambulatory clinics and hospital sitesin [place], [place] and [place]. This disclosure is being madepursuant to the Care Everywhere program and may not contain all information available regarding this patient. Last updated 18.[facility] Allergies Active Allergy Reactions Criticality Noted Date [...] Description 07/08/2024 1:00 PM CDT Office Visit [facility] - LOCOMOTIVE ENGINEER DIESEL [address] [facility] [address] [place] [address] Denilson Brown MD Well woman exam with routine gynecological exam (Primary Dx); Special screening examination for human papillomavirus (HPV); Antwan 07/08/2024 11:54 AM CDT - 07/08/2024 11:59 PM CDT Hospital Encounter [facility] [address] [facility] [address] [place] [address] Discharge Disposition: Home or Self Care 07/08/2024 Travel 05/31/2024 8:00 AM RECRUITER ACCOUNT MANAGER Office Visit [facility] [address], [address] [place] [address] Ishaan Barillas MD Patellofemoral chondrosis of right [...] Sex Assigned at Female 05/12/2021 6:13 PM RECRUITER ACCOUNT MANAGER Gender Identity Female 05/12/2021 6:13 PM RECRUITER ACCOUNT MANAGER Sexual Orientation Straight 05/12/2021 6: 13 PM RECRUITER ACCOUNT MANAGER Last Filed Vital Signs Vital Sign Reading Time Taken Comments Blood Pressure 124/76 07/08/2024 1:00 PM CDT Pulse 60 06/29/2018 8:05 AM RECRUITER ACCOUNT MANAGER Temperature 36.2 C (97.2 F) 06/29/2018 7:42 AM RECRUITER ACCOUNT MANAGER Respiratory Rate 16 06/29/2018 8:05 AM RECRUITER ACCOUNT MANAGER Oxygen Saturation 98% 06/29/2018 8:05 AM RECRUITER ACCOUNT MANAGER Inhaled Oxygen Concentration - - Weight 94.3 [...] ANTIBODY W/ REFLX CONFIRM 05/26/2014 9:47 AM RECRUITER ACCOUNT MANAGER from Last 3 Months or Most Recently Relevant to Health Maintenance Results * PAP IG LB +HPV APTIMA REFLEX 16,18/45 (07/08/2024 3:04 PM CDT) Diagnosis Comment [facility] INSURANCE BILL Comment:NEGATIVE FOR INTRAEP ITHELIAL LESION OR MALIGNANCY. Specimen Adequacy Comment [facility] INSURANCE BILL Comment: Satisfactory for evaluation. Endocervical and/or squamous metaplastic cells (endocervical component) are present. Clinician Provided ICD10 Comment [facility] INSURANCE BILL Comment: Z01.419 Z11.51 Performed by Comment [facility] INSURANCE BILL Comment:Kinza portillo, Newborn Hearing Screener (ASCP) Comment . [facility] INSURANCE BILL Note Comment [facility] INSURANCE BILL Comment: The Pap smear is a screening test designed to aid in the detection of premalignant and malignant conditions of the uterine cervix. It is not a diagnostic procedure and should not be used as the sole means of detecting cervical cancer. Both false-positive and false-negative reports do occur. [facility] CPT Code Automation Comment [facility] INSURANCE BILL Comment: This liquid based ThinPrep(R) pap test was screened with the use of an image guided system. Human papillomavirus Aptima Negative Negative [facility] INSURANCE BILL Comment: This nucleic acid amplification test detects fourteen high-risk HPV types (16,18,31,33,35,39,45,51,52,56,58,59,66,68) without differentiation. HPV Genotype Reflexed Comment [facility] INSURANCE BILL Comment:Criteria not met, HP V Genotype not performed. PART OF UTERINE CERVIX / Unknown 07/08/2024 3:04 PM CDT 07/08/2024 Narrative [facility] INSURANCE BILL - 07/12/2024 3:09 PM CDT Performed at: [address] [place], [place] [address] [id number] Mechanical Reliability Engineer: Myah Clement MD, Phone: [phone] Performed at: [address] - [address] [place], [place] [id number] Mechanical Reliability Engineer: Myah Clement MD, Phone: [phone] Specimen Comment: Source.............Cervix;Endocervix Specimen Comment: No. of containers..01 ThinPrep Vial Denilson Brown MD LAB - PATHOLOGY/CYT OLOGY ORDERABLES [facility] INSURANCE BILL [address] [place] [address] * Mammo Bilat Screening [place] (07/08/2024 [...] 10.2 mg/dL [facility] Comment: Test Performed at: [place] [address] DEVANG MERINO MD Blood BLOOD SPECIMEN / Unknown 11/14/2022 7:51 AM CDT 11/14/2022 7:55 AM CDT Samantha Gorman MD LAB - CHEMISTRY ORDERABLES [facility] [address] [place] [address] * (ABNORMAL) LIPID PROFILE (11/14/2022 7:51 AM [...] Jose LEWIS et al. MARIA GUADALUPE. 2013;310(19): 4905-8983 (http://education.Clean Mobile.Brandkids/faq/ZXP077) CHOL/HDLC RATIO 2.9 <5.0 (calc) [facility] Non HDL Cholesterol 146(H) <130 mg/dL (calc) [facility] Comment: For patients with diabetes plus 1 major ASCVD risk factor, treating to a non-HDL-C goal of <100 mg/dL (LDL-C of <70 mg/dL) is considered a therapeutic option. Test Performed at: [facility] [place] [address] DEVANG MERINO MD Blood BLOOD SPECIMEN / Unknown 11/14/2022 7:51 AM CDT 11/14/2022 7:55 AM CDT Samantha Gorman MD LAB - CHEMISTRY ORDERABLES Performing Organization Address [facility] Co de Phone Number [facility] [address] [place] [address] * HIV-1 HIV-2 ANTIBODY W/ REFLX CONFIRM (05/26/2014 9:47 AM RECRUITER ACCOUNT MANAGER) HIV-1/HIV-2 NON-REACT DAVINA NON-REACT DAVINA [facility] Comment: A Nonreactive HIV 1/2 antibody result does not exclude HIV infection since the time frame for seroconversion is variable. If acute HIV infection is suspected, HIV-1 RNA TMA Qualitative (609[address]) testing is recommended. PLEASE NOTE: This information [...] sufficient for this purpose. Test Performed at: [facility] [address] [place] [address] VALENCIA CISNEROS DO,MPH 05/26/2014 9:47 AM RECRUITER ACCOUNT MANAGER 05/26/2014 9:48 AM RECRUITER ACCOUNT MANAGER Denilson Brown MD LAB - SEROLOGY OLU FINN Performing Organization Address [facility] Co de Phone Number [facility] [address] [place] [address] from Last 3 Months or Most Recently [...] 7:39 AM 11/04/2011 1:17 AM Care Teams Graphic Production Artist Relationship Specialty [place] [address] [facility] [address] [place] [address] PCP - OBGYN 10/21/08 [place] [address] [id number] PCP - General Internal Medicine 05/11/14
--- OUTSIDE RECORDS SUMMARY | 2024-07-26 13:25 | XMS_ITS | Clinical Summary ---
Author Organization [facility] Address [address] [place] [address] Phone Care Team Providers Care Print Traffic Manager Name Role Phone Ricardo Vee MD Primary [...] Comments Blood Pressure 98/60 05/11/2020 9:59 AM POLYGRAPH OPERATOR Pulse 69 05/11/2020 9:59 AM POLYGRAPH OPERATOR Temperature 36.9 C (98.5 F) 05/11/2020 9:59 AM POLYGRAPH OPERATOR Respiratory Rate 16 05/11/2020 9:59 AM POLYGRAPH OPERATOR Oxygen Saturation 98% 05/11/2020 9:59 AM POLYGRAPH OPERATOR Inhaled Oxygen Concentration - - Weight 82.6 kg (182 lb) 05/11/2020 9:59 AM POLYGRAPH OPERATOR Height 180.3 cm (5' 11 ) 11/25/2017 [...] to complete this topic Insurance Care Teams Print Traffic Manager Relationship Specialty [place] [address] [place] [address] PCP - General Internal Medicine 11/25/17
[2024-07-26 13:40] LABS: Influenza A QL RT-PCR Negative (Negative); Influenza B QL RT-PCR Negative (Negative); RSV RNA, RT-PCR Negative (Negative); SARS-CoV-2 RNA PCR Negative (Negative)
[2024-07-26 15:05] VITALS: BP 123/80; PULSE 60; RESP 16; O2SAT 100
== END 2024-07-26 15:05 | disposition home or self-care (01) ==
PROVIDERS: Emergency Provider Emergency Medicine
DX: R42 Dizziness and giddiness (principal); Z20.822 Contact with and (suspected) exposure to COVID-19
CPT/HCPCS: 36415; 87637; 96361; 96374; 99284; A9270; J2405; J7030